=== PATIENT | male | born 1965 | race Caucasian/White ===

== ENCOUNTER → 2016-04-05 | Outpatient (REF) | payer OTHER ==
[2016-04-05 11:33] LABS: MEAN CORPUSCULAR HEMOGLOBIN 32.2 pg (27.0-33.0); MEAN CORPUSCULAR HGB CONC 35.5 g/dl (32.0-36.5); MEAN CORPUSCULAR VOLUME 90.6 fl (80.0-96.0); RED CELL DISTRIBUTION WIDTH 11.8 % (11.5-14.5); WHITE BLOOD COUNT 7.7 K/mm3 (4.0-10.0)
[2016-04-05 11:45] LABS: ALBUMIN/GLOBULIN RATIO 1.21 (1.00-1.93); ALKALINE PHOSPHATASE 163 U/L (45-117); ALT/SGPT 45 U/L (12-78); ANION GAP 10 MEQ/L (8-16); AST/SGOT 17 U/L (15-37); BILIRUBIN,TOTAL 0.4 MG/DL (0.2-1.0); BLOOD UREA NITROGEN 16 MG/DL (7-18); CALCIUM LEVEL 9.5 MG/DL (8.5-10.1); CARBON DIOXIDE LEVEL 27 MEQ/L (21-32); CHLORIDE LEVEL 106 MEQ/L (98-107); CHOLESTEROL LEVEL 191 MG/DL (<200); CREATININE FOR GFR 1.01 MG/DL (0.70-1.30); GLOMERULAR FILTRATION RATE > 60.0 (>56); GLUCOSE, FASTING 124 MG/DL (70-105); POTASSIUM SERUM 4.3 MEQ/L (3.5-5.1); SODIUM LEVEL 143 MEQ/L (136-145); TOTAL PROTEIN 7.3 GM/DL (6.4-8.2); TRIGLYCERIDES LEVEL 189 MG/DL (<150)
== END ==
LOC: M SFHCLERA 08:16
PROVIDERS: ATTEND Family Medicine
DX: Z00.00 Encounter for general adult medical examination without abnormal findings (principal)

== ENCOUNTER → 2016-05-08 | Outpatient (CLI) | payer OTHER ==
[~2016-05-08] VITALS: Ht 180.3 cm; Wt 99.8 kg
[~2016-05-08] MED LIST: ASPI1TAB PO; ATOR1TAB19 PO; LIDOCAINE 2% INJ 100 MG/5 ML SDV (FOR ANES.) As Ordered ONE; LOSA25TA8 PO; NEXI40CA PO; NS 1,000 ML IV SCH; PROPOFOL 500 MG/50 ML VIAL As Ordered ONE
--- NOTE | 2016-05-08 10:15 | ROOR ---
Patient Name: Arya Thompson Procedure Date: 05/08/2016 10:00 AM Date of : 1965 Age: 50 Room: [facility] Gender: Male Note Status: Finalized Procedure: Colonoscopy to Cecum Indications: Screening for colorectal malignant neoplasm Providers: Nikhil Muniz MD Referring MD: VERO HERRMANN MD Requesting Provider: Medicines: Monitored Anesthesia Care Complications: No immediate complications. Procedure: Pre-Anesthesia Assessment: - The heart rate, respiratory rate, oxygen saturations, blood pressure, adequacy of pulmonary ventilation, and response to care were monitored throughout the procedure. The Colonoscope was introduced through the anus and advanced to the cecum, identified by appendiceal orifice and ileocecal valve. The colonoscopy was performed without difficulty. The patient tolerated the procedure well. The quality of the bowel preparation was excellent. Findings: The perianal and digital rectal examinations were normal. Non-bleeding internal hemorrhoids were found during retroflexion. The hemorrhoids were small and Grade I (internal hemorrhoids that do not prolapse). No other significant abnormalities were identified in a careful examination of the remainder of the colon. The exam was otherwise without abnormality on direct and retroflexion views. Impression: - Non-bleeding internal hemorrhoids. - The examination was otherwise normal on direct and retroflexion views. - No specimens collected. - The exam was otherwise normal to the cecum. Recommendation: - Patient has a contact number available for emergencies. The signs and symptoms of potential delayed complications were discussed with the patient. Return to normal activities tomorrow. Written discharge instructions were provided to the patient. - High fiber diet. - Discharge patient to home. - Continue present medications. - Repeat colonoscopy in 10 years for screening purposes. - Return to referring physician. - The findings and recommendations were discussed with the patient's family. Nikhil Muniz MD Nikhil Muniz MD 05/08/2016 10:15:01 AM This report has been signed electronically. Number of Addenda: 0 Note Initiated On: 05/08/2016 10:00 AM Estimated Blood Loss: Estimated blood loss: none.
[2016-05-08 10:30] VITALS: BP 146/93
== END ==
LOC: M OPP 09:16
PROVIDERS: ATTEND Internal Medicine Gastroenterology
DX: Z12.11 Encounter for screening for malignant neoplasm of colon (principal); K64.0 First degree hemorrhoids; I10 Essential (primary) hypertension; M19.90 Unspecified osteoarthritis, unspecified site; G47.30 Sleep apnea, unspecified; K21.9 Gastro-esophageal reflux disease without esophagitis; E78.00 Pure hypercholesterolemia, unspecified; R06.83 Snoring; Z87.891 Personal history of nicotine dependence; Z79.82 Long term (current) use of aspirin; Z79.899 Other long term (current) drug therapy
CPT/HCPCS: 99156; G0121

== ENCOUNTER → 2016-10-05 | Outpatient (REF) | payer OTHER ==
[~2016-10-05] MED LIST changes: -LIDOCAINE 2% INJ 100 MG/5 ML SDV (FOR ANES.) As Ordered ONE; -NS 1,000 ML IV SCH; -PROPOFOL 500 MG/50 ML VIAL As Ordered ONE
[2016-10-05 12:53] LABS: ALBUMIN 3.8 GM/DL (3.2-5.2); ALBUMIN/GLOBULIN RATIO 1.19 (1.00-1.93); ALKALINE PHOSPHATASE 139 U/L (45-117); ALT/SGPT 36 U/L (12-78); ANION GAP 9 MEQ/L (8-16); AST/SGOT 15 U/L (15-37); BILIRUBIN,TOTAL 0.5 MG/DL (0.2-1.0); BLOOD UREA NITROGEN 13 MG/DL (7-18); CALCIUM LEVEL 9.2 MG/DL (8.5-10.1); CARBON DIOXIDE LEVEL 25 MEQ/L (21-32); CHLORIDE LEVEL 105 MEQ/L (98-107); CREATININE FOR GFR 0.93 MG/DL (0.70-1.30); GLOMERULAR FILTRATION RATE > 60.0 (>56); GLUCOSE, FASTING 107 MG/DL (70-105); POTASSIUM SERUM 4.3 MEQ/L (3.5-5.1); SODIUM LEVEL 139 MEQ/L (136-145)
[2016-10-07 00:08] LABS: Lyme Disease IgG/IgM Antibodie <0.91 ISR (0.00-0.90); Lyme Disease IgM Ab Quantitati <0.80 index (0.00-0.79)
== END ==
LOC: M SFHCLERA 09:17
PROVIDERS: ATTEND Family Medicine
DX: M25.541 Pain in joints of right hand (principal); M25.542 Pain in joints of left hand

== ENCOUNTER → 2016-10-05 | Outpatient (CLI) | payer OTHER ==
--- NOTE | 2016-10-06 02:04 | REP ---
Clinical: Pain. Technique: Neutral and frog lateral views of the left hip. Comparison: 04/08/2014. Findings: Mild arthritic degenerative changes are again appreciated and relatively stable. Findings include increased sclerosis to the acetabular roof with subtle marginal spurring and joint space narrowing. Proximal left femur appears intact and relatively normal. No acute fracture dislocation. No periarticular calcifications. Impression: Mild arthritic degenerative changes similar to prior examination Signed by Chente Alcocer MD 10/06/2016 01:55 A
== END ==
LOC: M LRY 09:20
PROVIDERS: ATTEND Family Medicine
DX: M25.552 Pain in left hip (principal); M16.12 Unilateral primary osteoarthritis, left hip

== ENCOUNTER → 2017-01-23 | Outpatient (CLI) | payer OTHER ==
[~2017-01-23] MED LIST changes: +LIDOCAINE 1% MDV 20ML VIAL As Ordered ONE; +TRIAMCINOLONE ACETONIDE SUSP 40 MG/ML VIAL (J3301) As Ordered ONE
--- NOTE | 2017-01-23 13:36 | REP ---
ULTRASOUND LEFT HIP: Real-time sonographic evaluation of the left hip performed prior to ultrasound guided hip aspiration. There is an area of fluid at the left hip joint measuring 4.1 x 0.8 x 1.3 cm. Ultrasound guided aspiration is subsequently performed. Signed by Skip Berg MD 01/24/2017 11:27 A
--- NOTE | 2017-01-23 17:10 | REP ---
ULTRASOUND GUIDED LEFT HIP ASPIRATION AND INJECTION: The procedure was performed under the direct supervision of Dr. Berg. The patient has a history of a 4.1 x 0.8 x 1.3 cm area of fluid at the left hip joint seen on a previous ultrasound performed earlier today. The risks and benefits of the procedure were explained to the patient and informed consent was obtained. The left hip fluid collection was localized using ultrasound guidance. The skin was prepped and draped in a sterile fashion. 1% Lidocaine was used as a local anesthetic. Using ultrasound guidance an 18-gauge needle was inserted and then advanced into the fluid collection. 3 mL of clear yellow fluid was withdrawn and sent to the lab. 6 mL of a solution containing 5 mL of 1% Lidocaine and 1 mL of Kenalog 40 mg was injected. The needle was then removed. The patient tolerated the procedure well and there were no immediate complications. After the appropriate amount of monitored convalescence the patient was discharged from the department. Reviewed by ELOINA Fay 01/24/2017 04:28 PEdited and Signed by Skip Berg MD 01/25/2017 04:22 P
== END ==
LOC: M RADPRO 10:40
PROVIDERS: ATTEND Orthopaedic Surgery
DX: M16.12 Unilateral primary osteoarthritis, left hip (principal); Z88.8 Allergy status to other drugs, medicaments and biological substances; Z79.82 Long term (current) use of aspirin; Z79.899 Other long term (current) drug therapy
CPT/HCPCS: 20610; 76882; 88108; 88313; J3301

== ENCOUNTER → 2017-05-28 | Outpatient (CLI) | payer OTHER ==
[2017-05-28 21:04] LABS: BASO # 0.1 10^3/uL (0.0-0.2); BASO % 0.7 % (0.0-1.0); EOS # 0.2 10^3/uL (0.0-0.50); EOS % 2.7 % (0.0-3.0); HEMATOCRIT 45.2 % (42.0-52.0); HEMOGLOBIN 15.2 g/dl (14.0-18.0); IMMATURE GRANULOCYTE % 0.2 % (0-3.0); LYMPH # 2.3 10^3/uL (1.5-4.5); LYMPH % 25.9 % (24.0-44.0); MEAN CORPUSCULAR HEMOGLOBIN 31.5 pg (27.0-33.0); MEAN CORPUSCULAR HGB CONC 33.6 g/dl (32.0-36.5); MEAN CORPUSCULAR VOLUME 93.8 fl (80.0-96.0); MONO # 1.1 10^3/uL (0.0-0.8); MONO % 12.8 % (0.0-5.0); NEUTROPHILS # 5.1 10^3/uL (1.8-7.7); NEUTROPHILS % 57.7 % (36.0-66.0); PLATELET COUNT, AUTOMATED 205 10^3/uL (150-450); RED BLOOD COUNT 4.82 10^6/uL (4.30-6.10); RED CELL DISTRIBUTION WIDTH 12.2 % (11.5-14.5); WHITE BLOOD COUNT 8.9 10^3/uL (4.0-10.0)
[2017-05-28 21:26] LABS: ALBUMIN/GLOBULIN RATIO 1.14 (1.00-1.93); ALKALINE PHOSPHATASE 127 U/L (45-117); ALT/SGPT 59 U/L (12-78); ANION GAP 7 MEQ/L (8-16); AST/SGOT 22 U/L (7-37); BILIRUBIN,TOTAL 0.4 MG/DL (0.2-1.0); BLOOD UREA NITROGEN 13 MG/DL (7-18); C REACTIVE PROTEIN QUANTITATIV 0.63 MG/DL (0.00-0.30); CALCIUM LEVEL 8.6 MG/DL (8.5-10.1); CARBON DIOXIDE LEVEL 28 MEQ/L (21-32); CHLORIDE LEVEL 105 MEQ/L (98-107); CREATININE FOR GFR 0.89 MG/DL (0.70-1.30); GLOMERULAR FILTRATION RATE > 60.0 (>56); GLUCOSE, FASTING 81 MG/DL (70-100); POTASSIUM SERUM 4.3 MEQ/L (3.5-5.1); SODIUM LEVEL 140 MEQ/L (136-145); TOTAL PROTEIN 7.5 GM/DL (6.4-8.2)
== END ==
LOC: M LRY 16:19
DX: M06.00 Rheumatoid arthritis without rheumatoid factor, unspecified site (principal)

== ENCOUNTER → 2017-10-17 | Outpatient (REF) | payer OTHER | LOC: M SFHCLERA 14:43 | DX: J02.9 Acute pharyngitis, unspecified (principal) ==

== ENCOUNTER → 2017-12-07 | Outpatient (REF) | payer OTHER ==
[2017-12-07 12:26] LABS: HEMATOCRIT 47.8 % (42.0-52.0); HEMOGLOBIN 16.2 g/dl (13.5-17.5); MEAN CORPUSCULAR HEMOGLOBIN 33.1 pg (27.0-33.0); MEAN CORPUSCULAR HGB CONC 33.9 g/dl (32.0-36.5); MEAN CORPUSCULAR VOLUME 97.6 fl (80.0-96.0); PLATELET COUNT, AUTOMATED 201 10^3/uL (150-450); RED CELL DISTRIBUTION WIDTH 12.9 % (11.5-14.5); WHITE BLOOD COUNT 6.5 10^3/uL (4.0-10.0)
[2017-12-07 12:49] LABS: ALBUMIN 4.1 GM/DL (3.2-5.2); ALBUMIN/GLOBULIN RATIO 1.21 (1.00-1.93); ALKALINE PHOSPHATASE 116 U/L (45-117); ALT/SGPT 42 U/L (12-78); ANION GAP 7 MEQ/L (8-16); AST/SGOT 17 U/L (7-37); BILIRUBIN,TOTAL 0.6 MG/DL (0.2-1.0); BLOOD UREA NITROGEN 13 MG/DL (7-18); CALCIUM LEVEL 9.9 MG/DL (8.5-10.1); CARBON DIOXIDE LEVEL 26 MEQ/L (21-32); CHLORIDE LEVEL 108 MEQ/L (98-107); CHOLESTEROL LEVEL 250 MG/DL (<200); CHOLESTEROL RISK RATIO 5.952 (<5); CREATININE FOR GFR 0.87 MG/DL (0.70-1.30); FOLATE > 24.0 NG/ML (>5.4); FREE T4 0.96 NG/DL (0.76-1.46); GLOMERULAR FILTRATION RATE > 60.0 (>56); GLUCOSE, FASTING 100 MG/DL (70-100); HDL CHOLESTEROL 42 MG/DL (>40); LDL CHOLESTEROL 169 MG/DL (<100); NON-HDL-C 208 MG/DL; POTASSIUM SERUM 4.5 MEQ/L (3.5-5.1); SODIUM LEVEL 141 MEQ/L (136-145); TOTAL PROTEIN 7.5 GM/DL (6.4-8.2); TRIGLYCERIDES LEVEL 196 MG/DL (<150)
[2017-12-07 13:41] LABS: MALB URINE SIEMENS 14.8 MG/L
[2017-12-07 13:42] LABS: MAU/CREAT RATIO 8.6 MCG/MG (0.0-30.0)
== END ==
LOC: M SFHCPLAZ 08:53
DX: E78.2 Mixed hyperlipidemia (principal); M06.00 Rheumatoid arthritis without rheumatoid factor, unspecified site; I10 Essential (primary) hypertension

== ENCOUNTER → 2018-04-11 | Outpatient (REF) | payer OTHER ==
[~2018-04-11] MED LIST changes: -LIDOCAINE 1% MDV 20ML VIAL As Ordered ONE; +LOSA25TA14 PO; -LOSA25TA8 PO; -TRIAMCINOLONE ACETONIDE SUSP 40 MG/ML VIAL (J3301) As Ordered ONE
[2018-04-11 17:13] LABS: BASO # 0.1 10^3/uL (0.0-0.2); BASO % 0.6 % (0.0-1.0); EOS # 0.1 10^3/uL (0.0-0.50); HEMATOCRIT 50.9 % (42.0-52.0); HEMOGLOBIN 17.3 g/dl (13.5-17.5); LYMPH # 1.8 10^3/uL (1.5-4.5); LYMPH % 17.2 % (24.0-44.0); MEAN CORPUSCULAR VOLUME 97.1 fl (80.0-96.0); MONO # 1.4 10^3/uL (0.0-0.8); MONO % 12.8 % (0.0-5.0); NEUTROPHILS # 7.3 10^3/uL (1.8-7.7); NEUTROPHILS % 67.9 % (36.0-66.0); PLATELET COUNT, AUTOMATED 222 10^3/uL (150-450); RED BLOOD COUNT 5.24 10^6/uL (4.30-6.10); WHITE BLOOD COUNT 10.7 10^3/uL (4.0-10.0)
[2018-04-11 17:25] LABS: ALBUMIN 4.2 GM/DL (3.2-5.2); ALT/SGPT 90 U/L (12-78); BILIRUBIN,TOTAL 0.8 MG/DL (0.2-1.0); BLOOD UREA NITROGEN 18 MG/DL (7-18); C REACTIVE PROTEIN QUANTITATIV 1.63 MG/DL (0.00-0.30); CALCIUM LEVEL 8.6 MG/DL (8.5-10.1); CARBON DIOXIDE LEVEL 26 MEQ/L (21-32); CHLORIDE LEVEL 103 MEQ/L (98-107); CREATININE FOR GFR 1.08 MG/DL (0.70-1.30); GLOMERULAR FILTRATION RATE > 60.0 (>56); GLUCOSE, FASTING 100 MG/DL (70-100); POTASSIUM SERUM 3.6 MEQ/L (3.5-5.1); RHEUMATOID FACTOR QUANT < 10.0 IU/ML (<15.0); SODIUM LEVEL 137 MEQ/L (136-145); TOTAL PROTEIN 7.8 GM/DL (6.4-8.2); URIC ACID 8.8 MG/DL (3.5-7.2)
[2018-04-11 18:05] LABS: ERYTHROCYTE SEDIMENTATION RATE 2 mm/hr (0-20)
[2018-04-17 14:36] LABS: ANA (HEP2) Negative (.); CYCLIC CITRULLINATED PEPTIDE 6 units (0-19); HLA-B27 Negative (.)
== END ==
LOC: M SFHCPLAZ 10:24
PROVIDERS: ATTEND Internal Medicine Rheumatology
DX: M19.90 Unspecified osteoarthritis, unspecified site (principal); M25.559 Pain in unspecified hip; M79.673 Pain in unspecified foot; M65.339 Trigger finger, unspecified middle finger

== ENCOUNTER → 2018-04-11 | Outpatient (CLI) | payer OTHER ==
--- NOTE | 2018-04-11 15:51 | REP ---
Sacroiliac joint series four views: The studies performed for R for a right os. Mineralization is normal. There is no cortical eburnation. There is no osteophytic growth. The sacral foramen are unremarkable. Phleboliths are incidentally noted in the pelvis bilaterally. There is osteoarthritis of the hips bilaterally. Impression: Negative bilateral sacroiliac joint series. Bilateral hip osteoarthritis. Electronically Signed by Skip De Leon MD 04/11/2018 03:42 P
--- NOTE | 2018-04-11 15:54 | REP ---
Bilateral hand series: Nine views: History: Arthritis. Findings: Four views of the right hand show overall normal mineralization. Joint spaces are preserved. No erosive changes seen. Soft tissues are unremarkable. Four views of the left hand demonstrate overall normal mineralization. Joint spaces are preserved. No erosive change is visible. Soft tissues are unremarkable. Impression: Negative radiographs of the hands bilaterally. Electronically Signed by Jackson Tatum MD 04/11/2018 03:56 P
--- NOTE | 2018-04-11 15:58 | REP ---
Bilateral foot series: Eight views. History: Pain. Arthritis. Findings: Overall mineralization pattern is normal. Joint spaces are preserved. There is mild hallux valgus deformity visible on the right. There is some early spurring at the first MTP joint on the right. Bones, joints and soft tissues are otherwise unremarkable. Impression: Hallux valgus and early MTP joint spurring right great toe. Otherwise negative. Electronically Signed by Jackson Tatum MD 04/12/2018 08:50 A
== END ==
LOC: M LRY 14:00
PROVIDERS: ATTEND Internal Medicine Rheumatology
DX: M16.0 Bilateral primary osteoarthritis of hip (principal); M20.11 Hallux valgus (acquired), right foot; M25.774 Osteophyte, right foot; M79.673 Pain in unspecified foot; M25.559 Pain in unspecified hip; M65.339 Trigger finger, unspecified middle finger
CPT/HCPCS: 72202; 73130; 73630; 80053; 81374; 84550; 85025; 85652; 86038; 86140; 86200; 86431; G0463

== ENCOUNTER → 2018-04-24 | Outpatient (REF) | payer OTHER ==
[2018-04-24 10:14] LABS: ALBUMIN 4.2 GM/DL (3.2-5.2); ALT/SGPT 73 U/L (12-78); BILIRUBIN,DIRECT 0.1 MG/DL (0.0-0.2); BILIRUBIN,TOTAL 0.4 MG/DL (0.2-1.0); C REACTIVE PROTEIN QUANTITATIV < 0.30 MG/DL (0.00-0.30); TOTAL PROTEIN 7.4 GM/DL (6.4-8.2)
== END ==
LOC: M SFHCPLAZ 08:35
PROVIDERS: ATTEND Internal Medicine Rheumatology
DX: M19.90 Unspecified osteoarthritis, unspecified site (principal)
CPT/HCPCS: 36415; 80076; 86140; G0463

== ENCOUNTER → 2018-05-27 | Outpatient (REF) | payer OTHER ==
[2018-05-27 11:45] LABS: BASO # 0.1 10^3/uL (0.0-0.2); BASO % 0.9 % (0.0-1.0); EOS # 0.2 10^3/uL (0.0-0.50); HEMATOCRIT 45.5 % (42.0-52.0); HEMOGLOBIN 15.3 g/dl (13.5-17.5); LYMPH # 2.5 10^3/uL (1.5-4.5); LYMPH % 38.8 % (24.0-44.0); MEAN CORPUSCULAR HEMOGLOBIN 32.6 pg (27.0-33.0); MEAN CORPUSCULAR HGB CONC 33.6 g/dl (32.0-36.5); MONO # 0.6 10^3/uL (0.0-0.8); MONO % 9.9 % (0.0-5.0); NEUTROPHILS % 47.2 % (36.0-66.0); PLATELET COUNT, AUTOMATED 173 10^3/uL (150-450); RED BLOOD COUNT 4.69 10^6/uL (4.30-6.10); WHITE BLOOD COUNT 6.4 10^3/uL (4.0-10.0)
[2018-05-27 12:04] LABS: ALBUMIN 3.8 GM/DL (3.2-5.2); ALT/SGPT 83 U/L (12-78); BILIRUBIN,TOTAL 0.4 MG/DL (0.2-1.0); BLOOD UREA NITROGEN 14 MG/DL (7-18); CALCIUM LEVEL 8.7 MG/DL (8.5-10.1); CARBON DIOXIDE LEVEL 24 MEQ/L (21-32); CHLORIDE LEVEL 109 MEQ/L (98-107); CREATININE FOR GFR 0.93 MG/DL (0.70-1.30); GLOMERULAR FILTRATION RATE > 60.0 (>56); GLUCOSE, FASTING 119 MG/DL (70-100); POTASSIUM SERUM 3.7 MEQ/L (3.5-5.1); SODIUM LEVEL 141 MEQ/L (136-145); URIC ACID 5.8 MG/DL (3.5-7.2)
[2018-05-27 12:40] LABS: ERYTHROCYTE SEDIMENTATION RATE 6 mm/hr (0-20)
== END ==
LOC: M SFHCPLAZ 08:24
PROVIDERS: ATTEND Internal Medicine Rheumatology
DX: M19.90 Unspecified osteoarthritis, unspecified site (principal)

== ENCOUNTER → 2018-06-14 | Outpatient (REF) | payer OTHER ==
[~2018-06-14] MED LIST changes: -ASPI1TAB PO; +ASPI81TA26 PO
[2018-06-14 20:27] LABS: BASO # 0.1 10^3/uL (0.0-0.2); BASO % 0.8 % (0.0-1.0); EOS # 0.1 10^3/uL (0.0-0.50); EOS % 1.1 % (0.0-3.0); HEMATOCRIT 47.4 % (42.0-52.0); HEMOGLOBIN 15.8 g/dl (13.5-17.5); LYMPH # 2.4 10^3/uL (1.5-4.5); LYMPH % 27.2 % (24.0-44.0); MEAN CORPUSCULAR HEMOGLOBIN 32.2 pg (27.0-33.0); MEAN CORPUSCULAR HGB CONC 33.3 g/dl (32.0-36.5); MEAN CORPUSCULAR VOLUME 96.5 fl (80.0-96.0); MONO # 0.7 10^3/uL (0.0-0.8); MONO % 8.1 % (0.0-5.0); NEUTROPHILS # 5.6 10^3/uL (1.8-7.7); NEUTROPHILS % 62.6 % (36.0-66.0); PLATELET COUNT, AUTOMATED 195 10^3/uL (150-450); RED BLOOD COUNT 4.91 10^6/uL (4.30-6.10); WHITE BLOOD COUNT 8.9 10^3/uL (4.0-10.0)
[2018-06-14 20:33] LABS: ALBUMIN 4.2 GM/DL (3.2-5.2); ALT/SGPT 122 U/L (12-78); BILIRUBIN,TOTAL 0.8 MG/DL (0.2-1.0); BLOOD UREA NITROGEN 13 MG/DL (7-18); C REACTIVE PROTEIN QUANTITATIV < 0.30 MG/DL (0.00-0.30); CALCIUM LEVEL 8.9 MG/DL (8.5-10.1); CARBON DIOXIDE LEVEL 25 MEQ/L (21-32); CHLORIDE LEVEL 106 MEQ/L (98-107); CREATININE FOR GFR 0.89 MG/DL (0.70-1.30); GLOMERULAR FILTRATION RATE > 60.0 (>56); GLUCOSE, FASTING 94 MG/DL (70-100); POTASSIUM SERUM 3.9 MEQ/L (3.5-5.1); SODIUM LEVEL 139 MEQ/L (136-145); TOTAL PROTEIN 7.1 GM/DL (6.4-8.2)
[2018-06-14 21:29] LABS: ERYTHROCYTE SEDIMENTATION RATE 4 mm/hr (0-20)
[2018-06-15 09:24] LABS: BILIRUBIN,DIRECT 0.2 MG/DL (0.0-0.2)
== END ==
LOC: M SFHCPLAZ 14:50
PROVIDERS: ATTEND Internal Medicine Rheumatology
DX: M19.90 Unspecified osteoarthritis, unspecified site (principal)

== ENCOUNTER → 2018-06-18 | Outpatient (REF) | payer OTHER ==
[2018-06-19 10:02] LABS: HEPATITIS B SURFACE ANTIBODY NEGATIVE (POSITIVE); HEPATITIS B SURFACE ANTIGEN NEGATIVE (NEGATIVE)
[2018-06-20 00:07] LABS: ANTI-MITOCHONDRIAL ANTIBODY <20.0 Units (0.0-20.0); ANTI-SMOOTH MUSCLE ANTIBODY 8 Units (0-19); HEPATITIS B CORE ANTIBODY IGG Negative (Negative)
== END ==
LOC: M SFHCPLAZ 08:47
PROVIDERS: ATTEND Internal Medicine Rheumatology
DX: R94.5 Abnormal results of liver function studies (principal); Z79.899 Other long term (current) drug therapy

== ENCOUNTER → 2018-08-16 | Outpatient (REF) | payer OTHER ==
[2018-08-16 12:13] LABS: ALBUMIN 3.8 GM/DL (3.2-5.2); ALT/SGPT 66 U/L (12-78); BILIRUBIN,TOTAL 0.6 MG/DL (0.2-1.0); BLOOD UREA NITROGEN 20 MG/DL (7-18); CALCIUM LEVEL 8.7 MG/DL (8.5-10.1); CARBON DIOXIDE LEVEL 24 MEQ/L (21-32); CHLORIDE LEVEL 109 MEQ/L (98-107); CREATININE FOR GFR 0.94 MG/DL (0.70-1.30); GLOMERULAR FILTRATION RATE > 60.0 (>56); GLUCOSE, FASTING 120 MG/DL (70-100); POTASSIUM SERUM 4.2 MEQ/L (3.5-5.1); SODIUM LEVEL 141 MEQ/L (136-145); TOTAL PROTEIN 7.2 GM/DL (6.4-8.2)
== END ==
LOC: M SFHCPLAZ 09:08
PROVIDERS: ATTEND Internal Medicine Rheumatology
DX: R94.5 Abnormal results of liver function studies (principal)

== ENCOUNTER → 2018-09-17 | Outpatient (CLI) | payer OTHER ==
[~2018-09-17] MED LIST changes: +ALEV220T22 PO; +NATU1TAB5 PO; +OMEP20CA4 PO; +embrel
[2018-09-17 07:23] LABS: HEMATOCRIT 46.5 % (42.0-52.0); HEMOGLOBIN 15.8 g/dl (13.5-17.5); MEAN CORPUSCULAR HEMOGLOBIN 32.8 pg (27.0-33.0); MEAN CORPUSCULAR VOLUME 96.7 fl (80.0-96.0); PLATELET COUNT, AUTOMATED 183 10^3/uL (150-450); RED BLOOD COUNT 4.81 10^6/uL (4.30-6.10); WHITE BLOOD COUNT 7.3 10^3/uL (4.0-10.0)
[2018-09-17 07:38] LABS: INR 0.96; PROTHROMBIN TIME 12.5 SECONDS (11.8-14.0)
--- NOTE | 2018-09-17 07:43 | ECGEPIP ---
[facility] Test Date: 2018-09-17 Pat Name: CHRISTY COLUNGA Department: Room: - Gender: Male Brick Layer: ARI : 1965 Requested By: Jhonathan Wilkinson Order Number: [id number] Reading MD: Chiqui Alexis Measurements Intervals [place] Rate: 68 P: 60 VA: 156 QRS: QRSD: 91 T: QT: 375 QTc: 401 Interpretive Statements SINUS RHYTHM MINIMAL VOLTAGE CRITERIA FOR LVH, CONSIDER NORMAL VARIANT Left axis deviation EARLY REPOLAR SUSPECTED NO PRIOR Electronically Signed on 09-17-2018 7:43:44 EDT by Chiqui Alexis
[2018-09-17 07:48] LABS: ALBUMIN 3.9 GM/DL (3.2-5.2); ALT/SGPT 40 U/L (12-78); BILIRUBIN,TOTAL 0.4 MG/DL (0.2-1.0); BLOOD UREA NITROGEN 22 MG/DL (7-18); CALCIUM LEVEL 8.9 MG/DL (8.5-10.1); CARBON DIOXIDE LEVEL 26 MEQ/L (21-32); CHLORIDE LEVEL 111 MEQ/L (98-107); GLOMERULAR FILTRATION RATE > 60.0 (>56); GLUCOSE, FASTING 116 MG/DL (70-100); POTASSIUM SERUM 4.2 MEQ/L (3.5-5.1); SODIUM LEVEL 137 MEQ/L (136-145); TOTAL PROTEIN 7.1 GM/DL (6.4-8.2)
[2018-09-17 08:05] LABS: ERYTHROCYTE SEDIMENTATION RATE 5 mm/hr (0-20)
--- NOTE | 2018-09-17 09:38 | REP ---
Clinical: Left hip arthritis. . Comparison: 12/04/2008 . Technique: PA and lateral. Findings: The mediastinum and cardiac silhouette are normal. The lung cisneros are clear and without acute consolidation, effusion, or pneumothorax. The skeletal structures are intact and normal. Impression: 1. No acute cardiopulmonary process. Electronically Signed by Chente Alcocer MD 09/17/2018 09:31 A
== END ==
LOC: M LAB 06:45
PROVIDERS: ATTEND Orthopaedic Surgery
DX: Z01.818 Encounter for other preprocedural examination (principal); M16.12 Unilateral primary osteoarthritis, left hip

== ENCOUNTER 2018-10-09 07:02 | Inpatient (IN) | payer OTHER ==
--- NOTE | 2018-10-03 16:25 | HPE ---
DATE OF VISIT: 10/03/2018 DATE OF ANTICIPATED ADMISSION: 10/09/2018 ATTENDING PHYSICIAN: Dr. Jhonathan Wilkinson. CHIEF COMPLAINT: Left hip pain and stiffness. HISTORY: Patient is a 52-year-old male with progressively worsening left hip pain and stiffness. Symptoms started secondary to his chronic knee, ankle and low back pain. He has failed to improve with conservative measures. He continues to have symptoms with weightbearing activities and activities of daily living. He has consented for an elective left total hip arthroplasty with Dr. Wilkinson for his continued symptoms. Medical optimization pending with Dr. Erwin. CURRENT MEDICATIONS: - aspirin 81 mg daily - colchicine 0.6 mg as needed - omeprazole 20 mg daily - Enbrel injections - allopurinol 100 mg daily - Nexium 20 mg daily - Lipitor 420 mg daily - losartan 50 mg daily - sulfasalazine 500 mg daily ALLERGIES: There are no known drug allergies. CHRONIC MEDICAL CONDITIONS: 1. Gout. 2. Gastroesophageal reflux disease. 3. Rheumatoid arthritis. 4. Hypertension. 5. Hyperlipidemia. PAST SURGICAL HISTORY: 1. Two left knee arthroscopies. 2. One right knee arthroscopy 3. Cholecystectomy. SOCIAL HISTORY: Patient has never used tobacco products and occasionally consumes alcohol. REVIEW OF SYSTEMS: Patient denies fevers, chills, nausea, vomiting or diarrhea. Denies chest pain, shortness of breath, lightheadedness, dizziness or headaches. Denies any abdominal pain. Denies recent upper respiratory or urinary tract infection symptoms. He continues to get left hip pain with weightbearing activities and activities of daily living. PHYSICAL EXAMINATION: GENERAL: Well-nourished, well-developed male in no apparent distress. He is alert, oriented and cooperative. Mood and affect are appropriate. VITAL SIGNS: Blood pressure 130/79, heart rate 76, respirations 16, height 5 feet 11 inches, weight 230.6 pounds, temperature 97.7. NECK: Supple without lymphadenopathy. HEART: Regular rate and rhythm. LUNGS: Clear to auscultation bilaterally. Breathing is regular and nonlabored. ABDOMEN: Bowel sounds present. Abdomen is soft and nontender to palpation. MUSCULOSKELETAL: Left hip exhibits no gross abnormalities. His skin is intact. There is tenderness to palpation along the lateral hip and groin. He has significantly limited motion in internal and external rotation at the hip with quite a bit of pain on flexion of the hip. Strength is intact, however. Calf is soft, nontender to palpation with no palpable cords noted. He is neurovascularly intact distally. LABORATORY DATA: Chest x-ray: No acute cardiopulmonary process. Left hip x-ray: Notable for end-stage degenerative changes. EKG: Sinus rhythm with minimal voltage criteria for left ventricular hypertrophy (LVH), consider normal variant left axis deviation with early repolarization suspected. Prothrombin time 12.5, INR 0.96. Comprehensive metabolic profile: Fasting glucose elevated at 116, BUN elevated at 22, creatinine 1, GFR greater than 60, sodium 137, potassium 4.2, chloride elevated at 111, carbon dioxide 26, anion gap decreased at zero, calcium 8.9. AST 14, ALT 40, alkaline phosphatase elevated at 132, total bilirubin 0.4, total protein 7.1, albumin 3.9, albumin-globulin ratio 1.22. Complete blood count: Erythrocyte sedimentation rate 5, WBC is 7.3, RBC is 4.81, hemoglobin 15.8, hematocrit 46.5, platelets 183. IMPRESSION: Left hip degenerative arthritis with x-rays notable for end-stage degenerative changes. PLAN: Patient has consented for an elective left total hip arthroplasty with Dr. Wilkinson for his continued symptoms. Medical optimization pending with Dr. Erwin. [facility]
[2018-10-09] VITALS (7 sets, daily range): BP systolic 114–149; BP diastolic 84–101
[~2018-10-09] VITALS: Ht 180.3 cm; Wt 60.7 kg
[~2018-10-09 07:02] MED LIST changes: +BUPIVACAINE LIPOSOME/PF 1.3% 20ML VIAL (13.3MG/ML)(EXPAREL)(C9290 PER1MG) As Ordered ONE; +EPINEPHrine INJ 1 MG/ML 1ML AMP As Ordered ONE; +LIDOCAINE 1% MDV 20ML VIAL SQ PRN; +LR 1,000 ML IV ONE; +TRANEXAMIC ACID 100 MG/ML 10ML VIAL As Ordered ONE; +ceFAZolin 1GM INJ (J0690 PER 500MG) As Ordered ONE
[2018-10-09] MEDS ORDERED: PROPOFOL 500 MG/50 ML VIAL As Ordered ONE (08:04)
[2018-10-09] MEDS ORDERED: dexameTHASONE 4 MG/ML 1ML VIAL (J1100) As Ordered ONE ×2 (08:04→08:05)
[2018-10-09] MEDS ORDERED: fentaNYL 100 MCG/2 ML INJECTION (J3010) As Ordered ONE (08:04)
[2018-10-09] MEDS ORDERED: MIDAZOLAM INJ 2 MG/2 ML VIAL (J2250) As Ordered ONE (08:04)
[2018-10-09] MEDS ORDERED: ONDANSETRON 4MG/2ML VIAL (J2405) As Ordered ONE (08:05)
[2018-10-09] MEDS ORDERED: LIDOCAINE 2% INJ 100 MG/5 ML SDV (FOR ANES.) As Ordered ONE (08:11)
--- NOTE | 2018-10-09 08:36 | IPN ---
DATE: 10/09/2018 The patient seen and examined. He wishes to go ahead with a left total hip arthroplasty. He understands the nature of this and the risks of bleeding, infection, damage to nerves and vessels, persistent pain, wear, loosening, dislocation, leg length inequality, blood clots, medical problems, , among others.
[2018-10-09] MEDS ORDERED: HYDROMORPHONE HCL 0.5 MG/ 0.5 ML SYRINGE (J1170 PER 1) IV PRN (10:45)
[2018-10-09] MEDS ORDERED: fentaNYL 100 MCG/2 ML INJECTION (J3010) IV PRN (10:45)
[2018-10-09] MEDS ORDERED: PERCOCET 5MG/325MG TAB PO PRN ×2 (10:45→11:00)
[2018-10-09] MEDS ORDERED: ONDANSETRON 4MG/2ML VIAL (J2405) IV PRN (10:45)
[2018-10-09] MEDS ORDERED: LR 1,000 ML IV SCH ×2 (10:45)
[2018-10-09] MEDS ORDERED: ACETAMINOPHEN TAB 650MG DOSE (2X325MG) PO PRN (10:45)
[2018-10-09] MEDS ORDERED: MORPHINE 4 MG/ML 1ML VIAL/SYRINGE (J2270) IV PRN (10:45)
[2018-10-09] MEDS ORDERED: FLEET ENEMA PR PRN (10:45)
--- NOTE | 2018-10-09 11:14 | REP ---
Clinical: Status post arthroplasty. Technique: AP and cross-table lateral views. Findings: The patient is status post left hip replacement with normal positioning and appearance to the femoral and acetabular components. Overlying postsurgical changes appreciated. Impression: Satisfactory left hip replacement radiographs. Electronically Signed by Chente Alcocer MD 10/09/2018 11:05 A
--- NOTE | 2018-10-09 12:00 | RO ---
DATE OF PROCEDURE: 10/09/2018 PREOPERATIVE DIAGNOSIS: Left hip osteoarthritis. POSTOPERATIVE DIAGNOSIS: Left hip osteoarthritis. PROCEDURE PERFORMED: Left total hip arthroplasty using a [place] size 7 high offset, +1.5 ceramic 36 ball and a 56 [place] cup. SURGEON: Dr. Jhonathan Wilkinson OIL FIELD CASER: RAMIRO Lawrence ANESTHESIA: Spinal ESTIMATED BLOOD LOSS: 200 COMPLICATIONS: None. INDICATIONS: This is a 52-year-old gentleman who has had gradually worsening left hip pain to the point where he could not tolerate it anymore and had failed conservative management. He wished to have surgical treatment. He understood the nature and risks. DESCRIPTION OF PROCEDURE: The patient was taken to the operating room and placed in the right lateral decubitus position. All areas were padded appropriately. The [place] positioner was used. We prepped and draped the left hip in the usual fashion. A time out was performed. I created a longitudinal incision over the lateral aspect of the hip and sharply dissected down through subcutaneous tissue, controlled hemostasis with the cautery and incised the fascia miguelito which was relatively tight. He also had fairly poor fascia miguelito plane proximally. It tended to turn into muscle. I then divided the anterior 40% of the abductors. We gradually externally rotated the femur and exposed the femoral neck and divided the labrum. We then dislocated the hip with the corporate legal assistant's help and I put the leg in the bag. Then used a canal initiating reamer, the canal finding reamer, the lateralizing reamer, followed by sequential reaming up to a size 7, which had good purchase and good fit. This is what we templated. I then cut the neck at about three-quarters of a fingerbreadth from the lesser trochanter, removed the ball and then prepared the acetabulum. A significant amount of soft tissue was around the acetabulum. This was carefully removed with the cautery. Then I gradually began reaming with a 50 up to a 55, which had excellent bleeding bone and good concentric reaming. There was a large anterior osteophyte. I irrigated it out copiously and then impacted in a 56 cup in the appropriate amount of anteversion and horizontal tilt. I did dial in just a couple more degrees of anteversion because it is my feeling with his young age he may be more prone to doing flexion activities. I then dried it out and placed the 36 x 56 ceramic liner, which is what he had chosen preoperatively. This was impacted in place and made sure it was well seated. I then removed the large anterior osteophyte with an osteotome rongeur. Then prepared the canal at this point and used the oskar cutter followed by a series of broaches and the size 7 had an excellent fit and fill. I trialed a 1.5 standard and a 1.5 high offset and was more pleased with the high offset. His soft tissue tension was appropriate. It was noted that through mid flexion that there was a little clicking in his knee and this may be related to some arthritis, but we could palpate it over the anterior and lateral aspect of the knee and this was with both trial components. Soft tissue tension was appropriate with the high offset and I was more pleased with the stability and there was minimal shuck in full extension, excellent stability in external rotation and full extension and flexion with internal rotation. I then removed the trial components, irrigated again, as I had multiple times and placed the actual size 7 high offset stem, impacted it in place and made sure it was well seated. I then impacted the 36, +1.5 ceramic head over the taper, which was dried. We reduced the hip and again put the hip through a range of motion. I was very pleased with the stability and the soft tissue tension. There was minimal shuck in full extension. I then irrigated and placed the TXA deep in the wound. I repaired the minimus with #1 Vicryl suture. The abductor was repaired with #1 Vicryl suture. Excellent repair was noted. We irrigated each level. I again irrigated and closed the fascia miguelito with #1 Vicryl suture and running Stratafix in both directions, obtaining a good closure, although proximally the fascia as I mentioned did turn more into muscle. Then irrigated and closed the subcutaneous with #2-0 Vicryl and the skin with sheba. We had used the Stratafix in the fascial layer. Sterile dressing was applied. The patient was taken to recovery room in stable condition. There were no known complications. The plan will be routine postop. The corporate legal assistant was instrumental holding retractors, assisting in reducing and dislocating the hip and assisting in wound closure.
[2018-10-09] MEDS ORDERED: PROPOFOL 200 MG/20 ML VIAL As Ordered ONE (13:17)
[2018-10-09] MEDS ORDERED: PERCOCET 5MG/325MG TAB PO ONE (13:30)
[2018-10-09] MEDS: MORPHINE 4 MG/ML 1ML VIAL/SYRINGE (J2270) IV PRN ×2 (14:17→22:24)
[2018-10-09] MEDS: ONDANSETRON 4MG/2ML VIAL (J2405) IV PRN ×2 (15:15→22:23)
--- NOTE | 2018-10-09 16:50 | CR.PDOC ---
General Date of Consultation: Oct 09, 2018 Referring Provider: Jhonathan Wilkinson Attending Physician: Jhonathan Wilkinson Consultation REASON FOR CONSULTATION/CHIEF COMPLAINT: Management of RA and HTN HISTORY OF PRESENT ILLNESS: Pt is a 52 -year-old male with past medical history of RA, hypertension, hyperlipidemia and GERD who is s/p successful left hip arthroplasty. Hospitalist service consulted to help manage pt's RA and HTN. Pt reports having long history of bilateral hip pain, left greater than right. Patient started seeing Dr. Wilkinson one year ago and undergoing steroid injections. Steroid injections stop working, so decision made to undergo left total hip arthroplasty. Patient seen after procedure, doing well, only complaining of left hip and left knee pain. Patient also notes nausea with Percocet administration. Patient denies fevers, chills, chest pain, difficulty breathing, vomiting, diarrhea. ALLERGIES: Please see below. HOME MEDICATIONS: Please see below. PAST MEDICAL HISTORY: 1. Gout. 2. Gastroesophageal reflux disease. 3. Rheumatoid arthritis. 4. Hypertension. 5. Hyperlipidemia. PAST SURGICAL HISTORY: 1. Two left knee arthroscopies. 2. One right knee arthroscopy 3. Cholecystectomy. FAMILY HISTORY: -HTN, CA, RA SOCIAL HISTORY: Lives with and 3kids Works at [employer] denies smoking occasional alcohol denies illicits REVIEW OF SYSTEMS: 14 point ROS reviewed and pertinent positives and negatives documented as per HPI. All other reviewed ROS negative PHYSICAL EXAMINATION: VITAL SIGNS: Please see below. GENERAL APPEARANCE: overweight man laying in bed in NAD, Ice pack on left knee, pleasant on interview HEENT: PERRL, EOMI, OP clear RESPIRATORY: CTA b/l no w/r/r CARDIOVASCULAR: RRR, nl s1/2 no mrg ABDOMEN: overweight, soft, NTTP, ND EXTREMITIES: left hip bandaged, bandage appears clean/dry/intact, intact distal pulses, no edema NEUROLOGICAL: no focal deficits PSYCHIATRIC: nl mental status, nl mood, A&Ox3 LABORATORY DATA: Please see below. ASSESSMENT/PLAN: Pt is a 52 -year-old male with past medical history of RA, hypertension, hyperlipidemia and GERD who is s/p successful left hip arthroplasty. 1. left hip arthroplasty -doing well POD#0 -anticoagulation as per ortho -PT -will follow up labs in the AM -cont. fluids -pain control as per ortho 2. RA -on Enbrel, would hold for 14 days (2 weeks) post surgery 3. HTN -cont. losartan 4. GERD -cont. omeprazole DVT PPX: on xarelto Disposition: as per ortho Vital Signs/I&O Vital Signs Date Time Temp Pulse Resp B/P (MAP) Pulse Ox O2 Delivery O2 Flow Rate FiO2 10/09/18 14:27 18 10/09/18 12:00 96.2 63 136/94 (108) 97 10/09/18 10:45 2 Allergies Coded Allergies: No Known Allergies (Unverified , 09/25/18) Home Medications Scheduled Aspirin (Aspirin EC) 81 Mg Tab, 81 MG PO DAILY, #30 (Reported) Cholecalciferol (Vitamin D3) (Vitamin D3) 5,000 Unit Tablet, 5,000 UNIT PO DAILY, (Reported) Losartan Potassium (Losartan Potassium) 25 Mg Tab, 50 MG PO DAILY, (Reported) Omeprazole (Omeprazole) 20 Mg Capsule.dr, 20 MG PO DAILY, (Reported) [embrel] , QWEEK, (Reported) Scheduled PRN Naproxen Sodium (Aleve) 220 Mg Tablet, 220 MG PO PRN PRN for PAIN, (Reported) DAVE GUTIERREZ MD Oct 09, 2018 16:50
[2018-10-09] MEDS: PERCOCET 5MG/325MG TAB PO PRN ×2 (18:55→23:25)
[2018-10-10 02:05] VITALS: BP 165/84
[2018-10-10] MEDS: PERCOCET 5MG/325MG TAB PO PRN ×2 (04:13→08:18)
[2018-10-10 06:00] VITALS: BP 165/86
[2018-10-10 06:23] LABS: HEMATOCRIT 37.9 % (42.0-52.0); HEMOGLOBIN 12.7 g/dl (13.5-17.5); MEAN CORPUSCULAR HEMOGLOBIN 31.3 pg (27.0-33.0); MEAN CORPUSCULAR HGB CONC 33.5 g/dl (32.0-36.5); MEAN CORPUSCULAR VOLUME 93.3 fl (80.0-96.0); PLATELET COUNT, AUTOMATED 200 10^3/uL (150-450); RED BLOOD COUNT 4.06 10^6/uL (4.30-6.10); WHITE BLOOD COUNT 14.8 10^3/uL (4.0-10.0)
[2018-10-10 06:43] LABS: BLOOD UREA NITROGEN 11 MG/DL (7-18); CALCIUM LEVEL 8.5 MG/DL (8.5-10.1); CARBON DIOXIDE LEVEL 27 MEQ/L (21-32); CHLORIDE LEVEL 102 MEQ/L (98-107); CREATININE FOR GFR 0.96 MG/DL (0.70-1.30); GLOMERULAR FILTRATION RATE > 60.0 (>56); GLUCOSE, FASTING 166 MG/DL (70-100); POTASSIUM SERUM 3.7 MEQ/L (3.5-5.1); SODIUM LEVEL 136 MEQ/L (136-145)
[2018-10-10] MEDS ORDERED: PERC5TAB12 PO (07:17)
[2018-10-10] MEDS ORDERED: XARE10TA PO (07:17)
[2018-10-10] MEDS ORDERED: MIRALAX *UNIT DOSE* 17GM PACKET PO SCH (09:00)
[2018-10-10] MEDS ORDERED: MOM 30ML SUSPENSION UDC PO SCH (09:00)
[2018-10-10] MEDS: ONDANSETRON 4MG/2ML VIAL (J2405) IV PRN (10:03)
[2018-10-10] MEDS ORDERED: ZOFR4TAB16 PO (10:25)
--- NOTE | 2018-10-10 14:40 | IPNPDOC ---
Date Seen The patient was seen on 10/10/18. Progress Note SUBJECTIVE: complaining of left hip and left knee pain 5/10 at the bedside with uncontrolled bp. Improved after percocet, but had some nausea despite taking it with food. Patient denies fevers, chills, chest pain, difficulty breathing, vomiting, diarrhea. OBJECTIVE: PHYSICAL EXAMINATION: VITAL SIGNS: Please see below. GENERAL APPEARANCE: overweight man laying in bed in NAD, Ice pack on left knee, pleasant on interview HEENT: PERRL, EOMI, OP clear RESPIRATORY: CTA b/l no w/r/r CARDIOVASCULAR: RRR, nl s1/2 no mrg ABDOMEN: overweight, soft, NTTP, ND EXTREMITIES: left hip bandaged, bandage appears clean/dry/intact, intact distal pulses, no edema NEUROLOGICAL: no focal deficits PSYCHIATRIC: nl mental status, nl mood, A&Ox3 LABORATORY DATA: Please see below. ASSESSMENT/PLAN: Pt is a 52 -year-old male with past medical history of RA, hypertension, hyperlipidemia and GERD who is s/p successful left hip arthroplasty. Hospitalist service consulted to help manage pt's RA and HTN. Pt reports having long history of bilateral hip pain, left greater than right. Patient started seeing Dr. Wilkinson one year ago and undergoing steroid injections. Steroid injections stop working, so decision made to undergo left total hip arthroplasty. left hip arthroplasty -doing well POD#1 -anticoagulation as per ortho -CLEARED by PHYSICAL THERAPY FOR DC HOME -pain control as per ortho RA -on Enbrel, would hold for 14 days (2 weeks) post surgery HTN -cont. losartan GERD -cont. omeprazole Gout. -no acute issues Hyperlipidemia. -resumed home meds DVT PPX: on xarelto Disposition: per primary team VS, I&O, 24H, Dana Vital Signs/I&O Vital Signs Date Time Temp Pulse Resp B/P (MAP) Pulse Ox O2 Delivery O2 Flow Rate FiO2 10/10/18 08:48 16 10/10/18 06:00 97.8 93 165/86 (112) 96 10/09/18 10:45 2 I&O- Last 24 Hours up to 6 AM 10/10/18 06:00 Intake Total 3600 ml Output Total 2100 ml Balance 1500 ml Laboratory Data 24H LABS Laboratory Tests 2 10/10/18 05:57: Nucleated Red Blood Cells % (auto) 0.0, Anion Gap 7L, Glomerular Filtration Rate > 60.0, Blood Urea Nitrogen 11, Creatinine 0.96, Sodium Level 136, Potassium Level 3.7, Chloride Level 102, Carbon Dioxide Level 27, Calcium Level 8.5 CBC/BMP Laboratory Tests 10/10/18 05:57 Red Blood Count 4.06 L, Mean Corpuscular Volume 93.3, Mean Corpuscular Hemoglobin 31.3, Mean Corpuscular Hemoglobin Concent 33.5, Red Cell Distribution Width 12.1, Calcium Level 8.5 GRUPO BARBOZA MD Oct 10, 2018 14:40
[2018-10-10] MEDS ORDERED: RIVAROXABAN 10 MG TAB (XARELTO) PO SCH (18:00)
--- NOTE | 2018-10-14 10:26 | DSES ---
DATE OF ADMISSION: 10/09/2018 DATE OF DISCHARGE: 10/10/2018 ATTENDING PHYSICIAN: Dr. Jhonathan Wilkinson ADMISSION DIAGNOSIS: Right hip osteoarthritis. OTHER DIAGNOSES: Gout, gastroesophageal reflux disease, rheumatoid arthritis, hypertension, hyperlipidemia. DISCHARGE DIAGNOSIS: Right hip osteoarthritis status post right total hip arthroplasty. HISTORY: The patient is a 52-year-old male with progressively worsening right hip pain and stiffness. He failed to improve with conservative measures. He continued to have symptoms with weightbearing activities and activities of daily living. He consented for an elective right total hip arthroplasty with Dr. Wilkinson for his continued symptoms. OPERATION PERFORMED: Right total hip arthroplasty. HOSPITAL COURSE: The patient underwent a right total hip arthroplasty under spinal anesthesia which was uneventful. His hospital course was without complication and he was up with physical therapy per their protocol. Weightbearing as tolerated on the right lower extremity. The patient was discharged on oral pain medications and will resume his preoperative medications and diet. The patient will use his thromboembolic deterrent stockings and take his anticoagulant postoperatively to prevent deep venous thrombosis. The patient will followup in our office in 12- 14 days for wound check and staple removal. He is encouraged to contact our office sooner if there is any increase in pain, redness, drainage, numbness or tingling in the extremity, fever greater than 101 degrees or any other concerns. Please see medical record for additional details. MADELINE
== END 2018-10-10 11:00 | disposition home or self-care (01) | DRG 470 ==
LOC: M OR 07:02 → M MS5PR 11:25
PROVIDERS: ADMIT Orthopaedic Surgery; ATTEND Orthopaedic Surgery
PROC: 0SRB03Z Replacement of Left Hip Joint with Ceramic Synthetic Substitute, Open Approach (ICD-10-PCS; principal; 2018-10-09 08:30)
DX: M16.12 Unilateral primary osteoarthritis, left hip (principal); M10.9 Gout, unspecified; I10 Essential (primary) hypertension; E78.5 Hyperlipidemia, unspecified; K21.9 Gastro-esophageal reflux disease without esophagitis; M06.9 Rheumatoid arthritis, unspecified; Z90.49 Acquired absence of other specified parts of digestive tract; Z79.82 Long term (current) use of aspirin

== ENCOUNTER → 2018-10-25 | Outpatient (REF) | payer OTHER ==
[~2018-10-25] MED LIST changes: -BUPIVACAINE LIPOSOME/PF 1.3% 20ML VIAL (13.3MG/ML)(EXPAREL)(C9290 PER1MG) As Ordered ONE; -EPINEPHrine INJ 1 MG/ML 1ML AMP As Ordered ONE; -LIDOCAINE 1% MDV 20ML VIAL SQ PRN; -LR 1,000 ML IV ONE; +PERC5TAB12 PO; -TRANEXAMIC ACID 100 MG/ML 10ML VIAL As Ordered ONE; +XARE10TA PO; +ZOFR4TAB16 PO; -ceFAZolin 1GM INJ (J0690 PER 500MG) As Ordered ONE
[2018-10-25 11:35] LABS: BASO # 0.1 10^3/uL (0.0-0.2); BASO % 0.9 % (0.0-1.0); EOS # 0.2 10^3/uL (0.0-0.50); EOS % 1.4 % (0.0-3.0); HEMATOCRIT 42.2 % (42.0-52.0); HEMOGLOBIN 13.7 g/dl (13.5-17.5); LYMPH # 1.8 10^3/uL (1.5-4.5); LYMPH % 16.7 % (24.0-44.0); MEAN CORPUSCULAR HEMOGLOBIN 32.2 pg (27.0-33.0); MEAN CORPUSCULAR HGB CONC 32.5 g/dl (32.0-36.5); MEAN CORPUSCULAR VOLUME 99.1 fl (80.0-96.0); MONO # 0.8 10^3/uL (0.0-0.8); MONO % 7.1 % (0.0-5.0); NEUTROPHILS # 8.1 10^3/uL (1.8-7.7); NEUTROPHILS % 73.2 % (36.0-66.0); PLATELET COUNT, AUTOMATED 482 10^3/uL (150-450); RED BLOOD COUNT 4.26 10^6/uL (4.30-6.10)
[2018-10-25 11:50] LABS: ALBUMIN 3.6 GM/DL (3.2-5.2); ALT/SGPT 38 U/L (12-78); BILIRUBIN,TOTAL 0.4 MG/DL (0.2-1.0); BLOOD UREA NITROGEN 18 MG/DL (7-18); CALCIUM LEVEL 9.5 MG/DL (8.5-10.1); CARBON DIOXIDE LEVEL 25 MEQ/L (21-32); CHLORIDE LEVEL 106 MEQ/L (98-107); CREATININE FOR GFR 0.99 MG/DL (0.70-1.30); GLOMERULAR FILTRATION RATE > 60.0 (>56); GLUCOSE, FASTING 113 MG/DL (70-100); POTASSIUM SERUM 4.3 MEQ/L (3.5-5.1); SODIUM LEVEL 141 MEQ/L (136-145); TOTAL PROTEIN 7.5 GM/DL (6.4-8.2)
[2018-10-25 12:03] LABS: ERYTHROCYTE SEDIMENTATION RATE 69 mm/hr (0-20)
[2018-10-25 12:21] LABS: MALB URINE SIEMENS 27.3 MG/L; MAU/CREAT RATIO 9.4 MCG/MG (0.0-30.0)
== END ==
LOC: M SFHCPLAZ 09:23
PROVIDERS: ATTEND Family Medicine
DX: I10 Essential (primary) hypertension (principal); R74.8 Abnormal levels of other serum enzymes

== ENCOUNTER → 2018-11-22 | Outpatient (REF) | payer OTHER ==
[2018-11-22 12:18] LABS: BASO # 0.1 10^3/uL (0.0-0.2); BASO % 1.1 % (0.0-1.0); EOS # 0.1 10^3/uL (0.0-0.5); EOS % 2.2 % (0.0-3.0); HEMOGLOBIN 14.8 g/dl (13.5-17.5); LYMPH # 1.2 10^3/uL (1.5-5.0); LYMPH % 22.6 % (24.0-44.0); MEAN CORPUSCULAR HEMOGLOBIN 31.6 pg (27.0-33.0); MEAN CORPUSCULAR HGB CONC 32.9 g/dl (32.0-36.5); MEAN CORPUSCULAR VOLUME 95.9 fl (80.0-96.0); MONO # 0.5 10^3/uL (0.0-0.8); MONO % 9.5 % (0.0-5.0); NEUTROPHILS # 3.5 10^3/uL (1.5-8.5); NEUTROPHILS % 64.2 % (36.0-66.0); PLATELET COUNT, AUTOMATED 229 10^3/uL (150-450); RED BLOOD COUNT 4.69 10^6/uL (4.30-6.10); WHITE BLOOD COUNT 5.5 10^3/uL (4.0-10.0)
[2018-11-22 12:35] LABS: ALBUMIN 3.8 GM/DL (3.2-5.2); ALT/SGPT 43 U/L (12-78); BILIRUBIN,TOTAL 0.5 MG/DL (0.2-1.0); BLOOD UREA NITROGEN 15 MG/DL (7-18); C REACTIVE PROTEIN QUANTITATIV 0.46 MG/DL (0.00-0.30); CALCIUM LEVEL 9.5 MG/DL (8.5-10.1); CARBON DIOXIDE LEVEL 24 MEQ/L (21-32); CHLORIDE LEVEL 107 MEQ/L (98-107); CREATININE FOR GFR 0.86 MG/DL (0.70-1.30); GAMMA GLUTAMYLTRANSPEPTIDASE 70 U/L (15-85); GLOMERULAR FILTRATION RATE > 60.0 (>56); GLUCOSE, FASTING 111 MG/DL (70-100); SODIUM LEVEL 141 MEQ/L (136-145)
[2018-11-22 12:48] LABS: ERYTHROCYTE SEDIMENTATION RATE 17 mm/hr (0-20)
[2018-11-25 00:07] LABS: Alkaline Phosphatase Iso-Bone 40 % (12-68); Alkaline Phosphatase Iso-Intes 12 % (0-18); Alkaline Phosphatase Iso-Liver 48 % (13-88); TOTAL ALK PHOS 131 IU/L (39-117)
== END ==
LOC: M LABDRAW1 09:36
PROVIDERS: ATTEND Internal Medicine Rheumatology
DX: R74.8 Abnormal levels of other serum enzymes (principal); M06.09 Rheumatoid arthritis without rheumatoid factor, multiple sites

== ENCOUNTER → 2019-02-19 | Outpatient (REF) | payer OTHER ==
[~2019-02-19] MED LIST changes: +OMEP-172 PO; -OMEP20CA4 PO
[2019-02-19 17:06] LABS: BASO # 0.1 10^3/uL (0.0-0.2); BASO % 1.2 % (0.0-1.0); EOS # 0.1 10^3/uL (0.0-0.5); EOS % 1.9 % (0.0-3.0); HEMATOCRIT 49.6 % (42.0-52.0); HEMOGLOBIN 15.7 g/dl (13.5-17.5); LYMPH # 2.3 10^3/uL (1.5-5.0); LYMPH % 30.1 % (24.0-44.0); MEAN CORPUSCULAR HEMOGLOBIN 30.4 pg (27.0-33.0); MEAN CORPUSCULAR HGB CONC 31.7 g/dl (32.0-36.5); MEAN CORPUSCULAR VOLUME 95.9 fl (80.0-96.0); MONO # 0.7 10^3/uL (0.0-0.8); MONO % 8.8 % (0.0-5.0); NEUTROPHILS # 4.3 10^3/uL (1.5-8.5); NEUTROPHILS % 57.6 % (36.0-66.0); PLATELET COUNT, AUTOMATED 219 10^3/uL (150-450); RED BLOOD COUNT 5.17 10^6/uL (4.30-6.10); WHITE BLOOD COUNT 7.5 10^3/uL (4.0-10.0)
[2019-02-19 17:58] LABS: ERYTHROCYTE SEDIMENTATION RATE 9 mm/hr (0-20)
[2019-02-19 21:52] LABS: ALBUMIN 3.9 GM/DL (3.2-5.2); ALT/SGPT 35 U/L (12-78); BILIRUBIN,TOTAL 0.5 MG/DL (0.2-1.0); BLOOD UREA NITROGEN 15 MG/DL (7-18); C REACTIVE PROTEIN QUANTITATIV 0.41 MG/DL (0.00-0.30); CALCIUM LEVEL 8.9 MG/DL (8.5-10.1); CARBON DIOXIDE LEVEL 28 MEQ/L (21-32); CHLORIDE LEVEL 107 MEQ/L (98-107); CREATININE FOR GFR 0.95 MG/DL (0.70-1.30); GLOMERULAR FILTRATION RATE > 60.0 (>56); GLUCOSE, FASTING 102 MG/DL (70-100); POTASSIUM SERUM 4.3 MEQ/L (3.5-5.1); SODIUM LEVEL 140 MEQ/L (136-145); TOTAL PROTEIN 7.5 GM/DL (6.4-8.2)
== END ==
LOC: M SFHCLERA 11:16
PROVIDERS: ATTEND Internal Medicine Rheumatology
DX: M06.9 Rheumatoid arthritis, unspecified (principal)

== ENCOUNTER → 2019-04-02 | Outpatient (CLI) | payer OTHER ==
[~2019-04-02] MED LIST changes: -OMEP-172 PO; +OMEP1CAP73 PO
--- NOTE | 2019-04-03 15:26 | SLEEPCENT ---
DATE OF PROCEDURE: 04/02/2019 ORDERED BY: RAMIRO Bucio Nocturnal polysomnography was performed for the titration of pressure therapy in this patient with a history of obstructive sleep apnea syndrome. Apnea-hypopnea index 13.7. For testing, the patient was fit with a ResMed Air Fit N20 medium sized mask, 4 cm of water pressure were applied to the circuit and the lights were extinguished. 6 hours and 30 minutes of data were reviewed. There were 366 minutes of sleep identified. Sleep latency was normal at 14.5 minutes. Rapid eye movement (REM) latency was normal at 64 minutes. Sleep architecture was good with four REM cycles. Overall sleep efficiency 87.3%. The patient's electrocardiogram showed sinus rhythm with an average heart rate of 66 per minute. Electroencephalogram (EEG) showed normal waveforms for awake and sleep stages. Respiratory events were best palliated with C-PAP to a pressure of +14. Remaining measures of sleep physiology were normal. IMPRESSION: Obstructive sleep apnea syndrome (G47.33). RECOMMENDATIONS: Nightly use of pressure therapy 14 cm of water.
== END ==
LOC: M SLEEP 19:42
PROVIDERS: ATTEND Physician Assistant
DX: G47.33 Obstructive sleep apnea (adult) (pediatric) (principal)

== ENCOUNTER → 2019-04-13 | Outpatient (CLI) | payer OTHER ==
[2019-04-13 14:22] LABS: BASO # 0.1 10^3/uL (0.0-0.2); BASO % 1.4 % (0.0-1.0); EOS # 0.2 10^3/uL (0.0-0.5); EOS % 2.4 % (0.0-3.0); LYMPH # 2.4 10^3/uL (1.5-5.0); LYMPH % 33.1 % (24.0-44.0); MEAN CORPUSCULAR HGB CONC 33.3 g/dl (32.0-36.5); MEAN CORPUSCULAR VOLUME 95.9 fl (80.0-96.0); MONO # 0.7 10^3/uL (0.0-0.8); MONO % 9.8 % (0.0-5.0); NEUTROPHILS # 3.9 10^3/uL (1.5-8.5); PLATELET COUNT, AUTOMATED 209 10^3/uL (150-450); RED BLOOD COUNT 4.69 10^6/uL (4.30-6.10); WHITE BLOOD COUNT 7.4 10^3/uL (4.0-10.0)
[2019-04-13 14:27] LABS: ALBUMIN 3.7 GM/DL (3.2-5.2); ALT/SGPT 36 U/L (12-78); BILIRUBIN,TOTAL 0.5 MG/DL (0.2-1.0); BLOOD UREA NITROGEN 13 MG/DL (7-18); C REACTIVE PROTEIN QUANTITATIV 0.32 MG/DL (0.00-0.30); CALCIUM LEVEL 9.2 MG/DL (8.5-10.1); CARBON DIOXIDE LEVEL 28 MEQ/L (21-32); CHLORIDE LEVEL 108 MEQ/L (98-107); CREATININE FOR GFR 0.98 MG/DL (0.70-1.30); GLOMERULAR FILTRATION RATE > 60.0 (>56); GLUCOSE, FASTING 97 MG/DL (70-100); POTASSIUM SERUM 4.2 MEQ/L (3.5-5.1); SODIUM LEVEL 140 MEQ/L (136-145)
[2019-04-13 22:01] LABS: ERYTHROCYTE SEDIMENTATION RATE 12 mm/hr (0-20)
== END ==
LOC: M LRY 12:33
PROVIDERS: ATTEND Internal Medicine
DX: M06.9 Rheumatoid arthritis, unspecified (principal)

== ENCOUNTER → 2019-07-07 | Outpatient (REF) | payer OTHER ==
[2019-07-07 18:03] LABS: BASO # 0.1 10^3/uL (0.0-0.2); BASO % 0.9 % (0.0-1.0); EOS # 0.2 10^3/uL (0.0-0.5); EOS % 2.5 % (0.0-3.0); HEMATOCRIT 44.9 % (42.0-52.0); LYMPH # 2.3 10^3/uL (1.5-5.0); LYMPH % 25.7 % (24.0-44.0); MEAN CORPUSCULAR HEMOGLOBIN 32.6 pg (27.0-33.0); MEAN CORPUSCULAR HGB CONC 33.4 g/dl (32.0-36.5); MEAN CORPUSCULAR VOLUME 97.6 fl (80.0-96.0); MONO # 0.9 10^3/uL (0.0-0.8); MONO % 10.3 % (0.0-5.0); NEUTROPHILS # 5.4 10^3/uL (1.5-8.5); NEUTROPHILS % 60.4 % (36.0-66.0); PLATELET COUNT, AUTOMATED 219 10^3/uL (150-450); WHITE BLOOD COUNT 8.9 10^3/uL (4.0-10.0)
[2019-07-07 18:08] LABS: ALBUMIN 3.8 GM/DL (3.2-5.2); ALT/SGPT 56 U/L (12-78); BILIRUBIN,TOTAL 0.5 MG/DL (0.2-1.0); BLOOD UREA NITROGEN 17 MG/DL (7-18); C REACTIVE PROTEIN QUANTITATIV < 0.30 MG/DL (0.00-0.30); CALCIUM LEVEL 9.4 MG/DL (8.5-10.1); CARBON DIOXIDE LEVEL 28 MEQ/L (21-32); CHLORIDE LEVEL 107 MEQ/L (98-107); CREATININE FOR GFR 1.06 MG/DL (0.70-1.30); GLOMERULAR FILTRATION RATE > 60.0 (>56); GLUCOSE, FASTING 125 MG/DL (70-100); SODIUM LEVEL 139 MEQ/L (136-145); TOTAL PROTEIN 7.2 GM/DL (6.4-8.2)
[2019-07-07 18:30] LABS: ERYTHROCYTE SEDIMENTATION RATE 20 mm/hr (0-20)
== END ==
LOC: M SFHCLERA 15:35
PROVIDERS: ATTEND Internal Medicine
DX: M06.09 Rheumatoid arthritis without rheumatoid factor, multiple sites (principal)

== ENCOUNTER → 2019-07-11 | Outpatient (REF) | payer OTHER ==
[2019-07-11 16:26] LABS: CHOLESTEROL RISK RATIO 5.682 (<5)
== END ==
LOC: M SFHCLERA 09:27
PROVIDERS: ATTEND Family Medicine
DX: E78.2 Mixed hyperlipidemia (principal)

== ENCOUNTER → 2019-07-16 | Outpatient (REF) | payer OTHER ==
[2019-07-17 14:19] LABS: HEMOGLOBIN A1c 6.8 %
== END ==
LOC: M LRY 11:18
PROVIDERS: ATTEND Family Medicine
DX: R73.01 Impaired fasting glucose (principal)

== ENCOUNTER → 2019-09-19 | Outpatient (REF) | payer OTHER ==
[2019-09-19 19:21] LABS: BASO # 0.1 10^3/uL (0.0-0.2); BASO % 1.1 % (0.0-1.0); EOS # 0.2 10^3/uL (0.0-0.5); HEMATOCRIT 45.6 % (42.0-52.0); HEMOGLOBIN 15.4 g/dl (13.5-17.5); LYMPH # 2.5 10^3/uL (1.5-5.0); LYMPH % 29.6 % (24.0-44.0); MEAN CORPUSCULAR HEMOGLOBIN 32.9 pg (27.0-33.0); MEAN CORPUSCULAR HGB CONC 33.8 g/dl (32.0-36.5); MEAN CORPUSCULAR VOLUME 97.4 fl (80.0-96.0); MONO # 0.7 10^3/uL (0.0-0.8); MONO % 8.6 % (0.0-5.0); NEUTROPHILS % 58.3 % (36.0-66.0); PLATELET COUNT, AUTOMATED 227 10^3/uL (150-450); RED BLOOD COUNT 4.68 10^6/uL (4.30-6.10); WHITE BLOOD COUNT 8.5 10^3/uL (4.0-10.0)
[2019-09-19 19:45] LABS: ERYTHROCYTE SEDIMENTATION RATE 7 mm/hr (0-20)
[2019-09-19 19:59] LABS: ALT/SGPT 39 U/L (12-78); BILIRUBIN,TOTAL 0.5 MG/DL (0.2-1.0); BLOOD UREA NITROGEN 15 MG/DL (7-18); C REACTIVE PROTEIN QUANTITATIV < 0.30 MG/DL (0.00-0.30); CALCIUM LEVEL 8.7 MG/DL (8.5-10.1); CARBON DIOXIDE LEVEL 23 MEQ/L (21-32); CHLORIDE LEVEL 107 MEQ/L (98-107); CREATININE FOR GFR 0.86 MG/DL (0.70-1.30); GLOMERULAR FILTRATION RATE > 60.0 (>56); GLUCOSE, FASTING 66 MG/DL (70-100); POTASSIUM SERUM 4.2 MEQ/L (3.5-5.1); SODIUM LEVEL 138 MEQ/L (136-145); TOTAL PROTEIN 7.1 GM/DL (6.4-8.2)
== END ==
LOC: M SFHCLERA 15:30
PROVIDERS: ATTEND Internal Medicine Rheumatology
DX: M06.09 Rheumatoid arthritis without rheumatoid factor, multiple sites (principal)

== ENCOUNTER → 2019-10-22 | Outpatient (REF) | payer OTHER ==
[2019-12-31 13:46] LABS: HEMOGLOBIN A1c 5.8 %
== END ==
LOC: M SFHCPLAZ 10:55
PROVIDERS: ATTEND Family Medicine
DX: E11.9 Type 2 diabetes mellitus without complications (principal)

== ENCOUNTER → 2019-12-26 | Outpatient (REF) | payer OTHER ==
[2019-12-26 11:59] LABS: BASO # 0.1 10^3/uL (0.0-0.2); BASO % 1.1 % (0.0-1.0); EOS # 0.2 10^3/uL (0.0-0.5); EOS % 2.3 % (0.0-3.0); HEMATOCRIT 48.8 % (42.0-52.0); HEMOGLOBIN 15.8 g/dl (13.5-17.5); LYMPH # 1.9 10^3/uL (1.5-5.0); LYMPH % 29.4 % (24.0-44.0); MEAN CORPUSCULAR HGB CONC 32.4 g/dl (32.0-36.5); MEAN CORPUSCULAR VOLUME 98.8 fl (80.0-96.0); MONO # 0.5 10^3/uL (0.0-0.8); MONO % 8.1 % (0.0-5.0); NEUTROPHILS # 3.8 10^3/uL (1.5-8.5); NEUTROPHILS % 58.8 % (36.0-66.0); PLATELET COUNT, AUTOMATED 212 10^3/uL (150-450); RED BLOOD COUNT 4.94 10^6/uL (4.30-6.10); WHITE BLOOD COUNT 6.4 10^3/uL (4.0-10.0)
[2019-12-26 12:27] LABS: ALBUMIN 3.9 GM/DL (3.2-5.2); ALT/SGPT 53 U/L (12-78); BILIRUBIN,TOTAL 0.7 MG/DL (0.2-1.0); BLOOD UREA NITROGEN 18 MG/DL (7-18); CALCIUM LEVEL 9.5 MG/DL (8.5-10.1); CARBON DIOXIDE LEVEL 26 MEQ/L (21-32); CHLORIDE LEVEL 108 MEQ/L (98-107); CREATININE FOR GFR 0.89 MG/DL (0.70-1.30); GLOMERULAR FILTRATION RATE > 60.0 (>56); GLUCOSE, FASTING 107 MG/DL (70-100); POTASSIUM SERUM 4.2 MEQ/L (3.5-5.1); SODIUM LEVEL 140 MEQ/L (136-145); TOTAL PROTEIN 7.3 GM/DL (6.4-8.2)
[2019-12-26 12:40] LABS: HEPATITIS B SURFACE ANTIGEN NEGATIVE (NEGATIVE)
[2019-12-26 12:45] LABS: ERYTHROCYTE SEDIMENTATION RATE 6 mm/hr (0-20)
[2019-12-26 13:09] LABS: HEPATITIS C VIRUS ABY INDEX 0.1 INDEX (<0.8)
== END ==
LOC: M SFHCRHEU 08:44
PROVIDERS: ATTEND Internal Medicine
DX: M06.09 Rheumatoid arthritis without rheumatoid factor, multiple sites (principal)
CPT/HCPCS: 80053; 85025; 85652; 86140; 86480; 86704; 86803; 87340; G0463

== ENCOUNTER → 2020-02-12 | Outpatient (CLI) | payer OTHER ==
[2020-02-12 12:59] LABS: BASO # 0.1 10^3/uL (0.0-0.2); EOS # 0.2 10^3/uL (0.0-0.5); EOS % 2.2 % (0.0-3.0); HEMATOCRIT 47.7 % (42.0-52.0); HEMOGLOBIN 15.4 g/dl (13.5-17.5); LYMPH % 28.6 % (24.0-44.0); MEAN CORPUSCULAR HEMOGLOBIN 31.7 pg (27.0-33.0); MEAN CORPUSCULAR HGB CONC 32.3 g/dl (32.0-36.5); MEAN CORPUSCULAR VOLUME 98.1 fl (80.0-96.0); MONO # 0.6 10^3/uL (0.0-0.8); NEUTROPHILS # 4.1 10^3/uL (1.5-8.5); NEUTROPHILS % 58.8 % (36.0-66.0); PLATELET COUNT, AUTOMATED 208 10^3/uL (150-450); RED BLOOD COUNT 4.86 10^6/uL (4.30-6.10); WHITE BLOOD COUNT 6.9 10^3/uL (4.0-10.0)
[2020-02-12 13:25] LABS: ERYTHROCYTE SEDIMENTATION RATE 8 mm/hr (0-20)
[2020-02-12 13:40] LABS: ALBUMIN 3.9 GM/DL (3.2-5.2); ALT/SGPT 37 U/L (12-78); BILIRUBIN,TOTAL 0.7 MG/DL (0.2-1.0); BLOOD UREA NITROGEN 14 MG/DL (7-18); C REACTIVE PROTEIN QUANTITATIV 0.37 MG/DL (0.00-0.30); CALCIUM LEVEL 9.4 MG/DL (8.5-10.1); CARBON DIOXIDE LEVEL 26 MEQ/L (21-32); CHLORIDE LEVEL 106 MEQ/L (98-107); CREATININE FOR GFR 0.87 MG/DL (0.70-1.30); GLOMERULAR FILTRATION RATE > 60.0 (>56); GLUCOSE, FASTING 98 MG/DL (70-100); POTASSIUM SERUM 4.3 MEQ/L (3.5-5.1); SODIUM LEVEL 139 MEQ/L (136-145); TOTAL PROTEIN 7.6 GM/DL (6.4-8.2)
== END ==
LOC: M WUC 10:53
PROVIDERS: ATTEND Internal Medicine
DX: M06.09 Rheumatoid arthritis without rheumatoid factor, multiple sites (principal)

== ENCOUNTER → 2020-04-14 | Outpatient (REF) | payer OTHER ==
[2020-04-14 13:54] LABS: BASO # 0.1 10^3/uL (0.0-0.2); BASO % 0.8 % (0.0-1.0); EOS # 0.2 10^3/uL (0.0-0.5); EOS % 2.5 % (0.0-3.0); HEMATOCRIT 46.1 % (42.0-52.0); HEMOGLOBIN 15.3 g/dl (13.5-17.5); LYMPH # 2.2 10^3/uL (1.5-5.0); LYMPH % 29.2 % (24.0-44.0); MEAN CORPUSCULAR HEMOGLOBIN 32.8 pg (27.0-33.0); MEAN CORPUSCULAR HGB CONC 33.2 g/dl (32.0-36.5); MEAN CORPUSCULAR VOLUME 98.7 fl (80.0-96.0); MONO # 0.7 10^3/uL (0.0-0.8); NEUTROPHILS # 4.4 10^3/uL (1.5-8.5); PLATELET COUNT, AUTOMATED 208 10^3/uL (150-450); RED BLOOD COUNT 4.67 10^6/uL (4.30-6.10); WHITE BLOOD COUNT 7.5 10^3/uL (4.0-10.0)
[2020-04-14 14:15] LABS: ERYTHROCYTE SEDIMENTATION RATE 9 mm/hr (0-20)
[2020-04-14 14:24] LABS: ALBUMIN 3.9 GM/DL (3.2-5.2); ALT/SGPT 38 U/L (12-78); BILIRUBIN,TOTAL 0.6 MG/DL (0.2-1.0); BLOOD UREA NITROGEN 17 MG/DL (7-18); CALCIUM LEVEL 9.3 MG/DL (8.5-10.1); CARBON DIOXIDE LEVEL 25 MEQ/L (21-32); CHLORIDE LEVEL 106 MEQ/L (98-107); CREATININE FOR GFR 0.93 MG/DL (0.70-1.30); GLOMERULAR FILTRATION RATE > 60.0 (>56); GLUCOSE, FASTING 106 MG/DL (70-100); POTASSIUM SERUM 4.1 MEQ/L (3.5-5.1); SODIUM LEVEL 140 MEQ/L (136-145); TOTAL PROTEIN 7.1 GM/DL (6.4-8.2)
== END ==
LOC: M PLALAB 09:24
PROVIDERS: ATTEND Internal Medicine
DX: M06.09 Rheumatoid arthritis without rheumatoid factor, multiple sites (principal)

== ENCOUNTER → 2020-05-04 | Outpatient (REF) | payer OTHER ==
[2020-05-04 13:16] LABS: HEMOGLOBIN A1c 5.8 %
== END ==
LOC: M PLALAB 08:08
PROVIDERS: ATTEND Family Medicine
DX: R73.03 Prediabetes (principal)

== ENCOUNTER → 2020-05-07 | Outpatient (REF) | payer OTHER ==
[2020-05-07 12:37] LABS: MALB URINE SIEMENS 29.6 MG/L; MAU/CREAT RATIO 9.6 MCG/MG (0.0-30.0)
== END ==
LOC: M SFHCPLAZ 10:11
PROVIDERS: ATTEND Family Medicine
DX: E11.9 Type 2 diabetes mellitus without complications (principal)

== ENCOUNTER → 2020-05-24 | Outpatient (CLI) | payer OTHER ==
[2020-05-24 13:05] LABS: BASO # 0.1 10^3/uL (0.0-0.2); BASO % 0.8 % (0.0-1.0); EOS # 0.2 10^3/uL (0.0-0.5); EOS % 1.4 % (0.0-3.0); HEMATOCRIT 41.1 % (42.0-52.0); HEMOGLOBIN 13.5 g/dl (13.5-17.5); MEAN CORPUSCULAR HEMOGLOBIN 32.9 pg (27.0-33.0); MEAN CORPUSCULAR HGB CONC 32.8 g/dl (32.0-36.5); MEAN CORPUSCULAR VOLUME 100.2 fl (80.0-96.0); MONO % 9.3 % (2.0-8.0); NEUTROPHILS # 7.7 10^3/uL (1.5-8.5); NEUTROPHILS % 69.9 % (36.0-66.0); PLATELET COUNT, AUTOMATED 273 10^3/uL (150-450)
[2020-05-24 13:36] LABS: ERYTHROCYTE SEDIMENTATION RATE 39 mm/hr (0-20)
== END ==
LOC: M PLALAB 12:06
PROVIDERS: ATTEND Orthopaedic Surgery
DX: Z96.642 Presence of left artificial hip joint (principal)

== ENCOUNTER → 2020-05-31 | Outpatient (CLI) | payer OTHER ==
[2020-05-31 14:07] LABS: BASO # 0.1 10^3/uL (0.0-0.2); BASO % 0.8 % (0.0-1.0); EOS # 0.2 10^3/uL (0.0-0.5); EOS % 1.9 % (0.0-3.0); HEMATOCRIT 42.7 % (42.0-52.0); HEMOGLOBIN 13.9 g/dl (13.5-17.5); LYMPH # 2.1 10^3/uL (1.5-5.0); LYMPH % 21.8 % (24.0-44.0); MEAN CORPUSCULAR HEMOGLOBIN 33.2 pg (27.0-33.0); MEAN CORPUSCULAR HGB CONC 32.6 g/dl (32.0-36.5); MEAN CORPUSCULAR VOLUME 101.9 fl (80.0-96.0); MONO # 0.9 10^3/uL (0.0-0.8); MONO % 9.2 % (2.0-8.0); NEUTROPHILS # 6.3 10^3/uL (1.5-8.5); NEUTROPHILS % 65.2 % (36.0-66.0); PLATELET COUNT, AUTOMATED 285 10^3/uL (150-450); RED BLOOD COUNT 4.19 10^6/uL (4.30-6.10); WHITE BLOOD COUNT 9.7 10^3/uL (4.0-10.0)
[2020-05-31 14:41] LABS: ERYTHROCYTE SEDIMENTATION RATE 16 mm/hr (0-20)
== END ==
LOC: M PLALAB 10:49
PROVIDERS: ATTEND Orthopaedic Surgery
DX: M25.552 Pain in left hip (principal)

== ENCOUNTER → 2020-06-10 | Outpatient (CLI) | payer OTHER ==
[~2020-06-10] MED LIST changes: +FOLI1TAB11 PO; +GABA600T4 PO; +METH2.5T48 PO; +[UNRECOGNIZED DRUG - OTHER] PO
--- NOTE | 2020-06-10 17:37 | REP ---
INDICATION: PAIN LT HIP. COMPARISON: None. TECHNIQUE: The procedure was performed under the direct supervision of Dr. Berg. The risks and benefits of the procedure were explained to the patient and informed consent was obtained. The left hip prosthesis was localized using fluoroscopic guidance. The skin was prepped and draped in a sterile fashion. 1% lidocaine was used as a local anesthetic. Using fluoroscopic guidance a 22 gauge spinal needle was inserted and advanced to the prosthetic femoral neck. A few drops of red colored aspirate were obtained and sent to the lab for analysis. The patient tolerated the procedure well and there were no immediate complications. Less than 6 seconds of fluoro time was utilized for this procedure. FINDINGS: None IMPRESSION: Fluoro guidance for left hip aspiration. <Electronically signed by Jairo White > 06/10/20 [id number] <Electronically signed by Skip Berg > 06/10/20 [id number]
== END ==
LOC: M IRPRO 13:42
PROVIDERS: ATTEND Orthopaedic Surgery
DX: M25.552 Pain in left hip (principal); Z96.642 Presence of left artificial hip joint

== ENCOUNTER → 2020-06-10 | Outpatient (REF) | payer OTHER ==
[2020-06-10 15:59] LABS: SOURCE, BODY FLUID LT HIP; SYNOVIAL FLUID COLOR RED (YELLOW)
[2020-06-10 16:00] LABS: CRYSTALS, BODY FLUID NONE SEEN (NONE SEEN); SOURCE, BODY FLUID CRYSTALS LEFT HIP; SOURCE, BODY FLUID GLUCOSE HIP LEFT
== END ==
LOC: M LAB REF 15:13
PROVIDERS: ATTEND Orthopaedic Surgery
DX: M25.552 Pain in left hip (principal)

== ENCOUNTER → 2020-06-18 | Outpatient (CLI) | payer OTHER ==
--- NOTE | 2020-06-18 14:58 | REP ---
INDICATION: PAIN IN LEFT HIP, R/O FX, LOOSENING LT HIP. COMPARISON: Left hip plain film study dated 10/09/2018. TECHNIQUE/RADIOTRACER AND DOSE: Three-phase radionuclide scan of the hips. 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 There is slightly increased vascular flow in the trochanteric area of the left hip on the vascular phase. There is increased radiotracer uptake in the trochanteric area of the left hip on the soft tissue phase. On the skeletal phase there is increased uptake in the trochanteric area and subtrochanteric area of the left femur. IMPRESSION: Increased uptake in the left hip trochanteric and subtrochanteric areas This may indicate loosening. The study is performed with 22 mCi of technetium 99 M radiolabeled MDP. <Electronically signed by Skip De Leon > 06/18/20 [id number]
== END ==
LOC: M RAD 10:54
PROVIDERS: ATTEND Orthopaedic Surgery
DX: M25.552 Pain in left hip (principal)
CPT/HCPCS: 78315; A9503

== ENCOUNTER → 2020-07-09 | Outpatient (CLI) | payer OTHER ==
--- NOTE | 2020-07-09 16:43 | REP ---
INDICATION: PRESENCE OF LT ART HIP JOINT. COMPARISON: None TECHNIQUE: Helical technique using 3 mm increments and reconstructed both sagittal and coronal planes FINDINGS: [place] artifact arises from a total left hip prosthesis. There is no CT evidence of abnormal periprosthetic lucency. There is no evidence of a gross hip joint effusion. There is no acute fracture, dislocation, or subluxation. The femoral and acetabular components of the hip prosthesis appear well seated and well approximated. IMPRESSION: Findings and limitations as described above. <Electronically signed by Mitul Carreon > 07/09/20 [id number]
== END ==
LOC: M RAD 16:04
PROVIDERS: ATTEND Orthopaedic Surgery
DX: Z96.642 Presence of left artificial hip joint (principal)

== ENCOUNTER → 2020-08-04 | Outpatient (CLI) | payer OTHER ==
--- NOTE | 2020-08-04 12:48 | REPVR ---
PROCEDURE INFORMATION: Exam: MR Lumbar Spine Without Contrast Exam date and time: 08/04/2020 9:11 AM Age: 54 years old Clinical indication: Low back pain; Additional info: Spondyls w/o myelopathy or radiculopathy TECHNIQUE: Imaging protocol: Multiplanar magnetic resonance images of the lumbar spine without intravenous contrast. COMPARISON: No relevant prior studies available. FINDINGS: Vertebrae: The lumbar vertebral bodies are normal in height,signal intensity and alignment.No acute fracture or dislocation is seen. Spinal epidural space: There is no evidence of epidural masses or hemorrhage. Spinal cord: The conus medullaris is normal. The cauda equina nerve roots demonstrate no crowding or displacement. T12-L1:Markedly reduced in height and T2 signal indicating degeneration.There is a mild diffuse posterior bulge causing mild effacement of the thecal sac.The spinal canal and neural foramina are patent and without significant stenosis. L1-L2: There is no significant degenerative disc herniation.The spinal canal and neural foramina are patent and without significant stenosis. L2-L3: There is no significant degenerative disc herniation.The spinal canal and neural foramina are patent and without significant stenosis. L3-L4: There is a mild diffuse posterior bulge causing mild effacement of the thecal sac. Small left foraminal protrusion with annular tear, abutting the left L3 nerve root. Series 6, image 13.The facet joints demonstrate mild degenerative hypertrophy and sclerosis.There is no evidence of spinal canal narrowing.There is mild left foraminal stenosis. L4-L5: Mildly reduced in height and T2 signal indicating degeneration.There is a mild diffuse posterior bulge causing mild effacement of the thecal sac.The facet joints demonstrate mild degenerative hypertrophy and sclerosis.There is no evidence of spinal canal narrowing.There is mild bilateral foraminal stenosis. L5-S1: There is no significant degenerative disc herniation.The spinal canal and neural foramina are patent and without significant stenosis. Soft tissues: The prevertebral soft tissues appear normal. IMPRESSION: MRI of the lumbar spine reveals multilevel degenerative spondylitic changes and degenerative disc disease as described above. Electronically signed by: Miguel A Reyes On 08/04/2020 12:47:44 PM
== END ==
LOC: M PLARAD 08:01
PROVIDERS: ATTEND Physical Medicine & Rehabilitation
DX: M43.06 Spondylolysis, lumbar region (principal); M51.36 Other intervertebral disc degeneration, lumbar region

== ENCOUNTER → 2020-08-04 | Outpatient (REF) | payer OTHER ==
[2020-08-04 10:18] LABS: BASO # 0.1 10^3/uL (0.0-0.2); BASO % 0.9 % (0.0-1.0); EOS # 0.1 10^3/uL (0.0-0.5); EOS % 1.7 % (0.0-3.0); HEMOGLOBIN 14.6 g/dl (13.5-17.5); LYMPH # 1.4 10^3/uL (1.5-5.0); LYMPH % 18.3 % (24.0-44.0); MEAN CORPUSCULAR HGB CONC 33.2 g/dl (32.0-36.5); MEAN CORPUSCULAR VOLUME 99.5 fl (80.0-96.0); MONO # 0.7 10^3/uL (0.0-0.8); MONO % 9.5 % (2.0-8.0); NEUTROPHILS # 5.1 10^3/uL (1.5-8.5); NEUTROPHILS % 69.1 % (36.0-66.0); PLATELET COUNT, AUTOMATED 264 10^3/uL (150-450); RED BLOOD COUNT 4.42 10^6/uL (4.30-6.10); WHITE BLOOD COUNT 7.4 10^3/uL (4.0-10.0)
[2020-08-04 11:11] LABS: ERYTHROCYTE SEDIMENTATION RATE 30 mm/hr (0-20)
== END ==
LOC: M PLALAB 09:48
PROVIDERS: ATTEND Internal Medicine
DX: M06.09 Rheumatoid arthritis without rheumatoid factor, multiple sites (principal)

== ENCOUNTER → 2020-09-02 | Outpatient (REF) | payer OTHER ==
[2020-09-02 13:51] LABS: HEMOGLOBIN A1c 5.8 %
[2020-09-02 14:02] LABS: BLOOD UREA NITROGEN 17 MG/DL (7-18); CARBON DIOXIDE LEVEL 27 MEQ/L (21-32); CHLORIDE LEVEL 105 MEQ/L (98-107); CHOLESTEROL LEVEL 248 MG/DL (<200); CHOLESTEROL RISK RATIO 5.767 (<5); CREATININE FOR GFR 0.94 MG/DL (0.70-1.30); GLOMERULAR FILTRATION RATE > 60.0 (>56); GLUCOSE, FASTING 112 MG/DL (70-100); HDL CHOLESTEROL 43 MG/DL (>40); LDL CHOLESTEROL 162 MG/DL (<100); NON-HDL-C 205 MG/DL; POTASSIUM SERUM 3.9 MEQ/L (3.5-5.1); SODIUM LEVEL 138 MEQ/L (136-145); TRIGLYCERIDES LEVEL 217 MG/DL (<150)
== END ==
LOC: M PLALAB 12:02
PROVIDERS: ATTEND Family Medicine
DX: E11.9 Type 2 diabetes mellitus without complications (principal); E78.2 Mixed hyperlipidemia; I10 Essential (primary) hypertension

== ENCOUNTER → 2020-09-09 | Outpatient (REF) | payer OTHER ==
[2020-09-09 18:05] LABS: BASO # 0.1 10^3/uL (0.0-0.2); BASO % 0.9 % (0.0-1.0); EOS # 0.1 10^3/uL (0.0-0.5); EOS % 1.5 % (0.0-3.0); HEMATOCRIT 47.1 % (42.0-52.0); HEMOGLOBIN 15.4 g/dl (13.5-17.5); LYMPH # 2.3 10^3/uL (1.5-5.0); LYMPH % 29.2 % (24.0-44.0); MEAN CORPUSCULAR HEMOGLOBIN 31.4 pg (27.0-33.0); MEAN CORPUSCULAR HGB CONC 32.7 g/dl (32.0-36.5); MEAN CORPUSCULAR VOLUME 95.9 fl (80.0-96.0); MONO # 0.6 10^3/uL (0.0-0.8); MONO % 7.8 % (2.0-8.0); NEUTROPHILS # 4.7 10^3/uL (1.5-8.5); PLATELET COUNT, AUTOMATED 212 10^3/uL (150-450); RED BLOOD COUNT 4.91 10^6/uL (4.30-6.10); WHITE BLOOD COUNT 7.8 10^3/uL (4.0-10.0)
[2020-09-09 18:06] LABS: ALBUMIN 3.9 GM/DL (3.2-5.2); ALT/SGPT 65 U/L (12-78); BILIRUBIN,TOTAL 0.4 MG/DL (0.2-1.0); BLOOD UREA NITROGEN 11 MG/DL (7-18); CARBON DIOXIDE LEVEL 28 MEQ/L (21-32); CHLORIDE LEVEL 105 MEQ/L (98-107); CREATININE FOR GFR 0.82 MG/DL (0.70-1.30); GLOMERULAR FILTRATION RATE > 60.0 (>56); GLUCOSE, FASTING 90 MG/DL (70-100); POTASSIUM SERUM 4.2 MEQ/L (3.5-5.1); SODIUM LEVEL 136 MEQ/L (136-145); TOTAL PROTEIN 7.4 GM/DL (6.4-8.2)
[2020-09-09 19:19] LABS: ERYTHROCYTE SEDIMENTATION RATE 8 mm/hr (0-20)
== END ==
LOC: M SFHCRHEU 12:40
PROVIDERS: ATTEND Internal Medicine Rheumatology
DX: M06.09 Rheumatoid arthritis without rheumatoid factor, multiple sites (principal); Z79.899 Other long term (current) drug therapy

== ENCOUNTER → 2021-01-12 | Outpatient (CLI) | payer OTHER ==
[2021-01-12 10:52] LABS: PLATELET COUNT, AUTOMATED 223 10^3/uL (150-450)
[2021-01-12 11:04] LABS: INR 0.89; PROTHROMBIN TIME 12.5 SECONDS (12.7-14.5)
[2021-01-12 11:05] LABS: PARTIAL THROMBOPLASTIN TIME 31.1 SECONDS (25.9-37.0)
== END ==
LOC: M PLALAB 08:12
PROVIDERS: ATTEND Physical Medicine & Rehabilitation
DX: M48.061 Spinal stenosis, lumbar region without neurogenic claudication (principal)

== ENCOUNTER → 2021-01-12 | Outpatient (CLI) | payer OTHER ==
[2021-01-12 11:12] LABS: BLOOD UREA NITROGEN 16 MG/DL (7-18); CALCIUM LEVEL 9.2 MG/DL (8.5-10.1); CARBON DIOXIDE LEVEL 26 MEQ/L (21-32); CHLORIDE LEVEL 105 MEQ/L (98-107); CREATININE FOR GFR 1.13 MG/DL (0.70-1.30); GLOMERULAR FILTRATION RATE > 60.0 (>56); GLUCOSE, FASTING 142 MG/DL (70-100); POTASSIUM SERUM 3.5 MEQ/L (3.5-5.1); SODIUM LEVEL 138 MEQ/L (136-145)
== END ==
LOC: M PLALAB 08:15
PROVIDERS: ATTEND Family Medicine
DX: I10 Essential (primary) hypertension (principal)

== ENCOUNTER → 2021-02-15 | Outpatient (CLI) | payer OTHER ==
[2021-02-15 10:28] LABS: BASO # 0.1 10^3/uL (0.0-0.2); BASO % 0.7 % (0.0-1.0); EOS # 0.3 10^3/uL (0.0-0.5); EOS % 2.9 % (0.0-3.0); HEMATOCRIT 47.3 % (42.0-52.0); HEMOGLOBIN 15.7 g/dl (13.5-17.5); LYMPH # 1.7 10^3/uL (1.5-5.0); LYMPH % 18.3 % (24.0-44.0); MEAN CORPUSCULAR HGB CONC 33.2 g/dl (32.0-36.5); MEAN CORPUSCULAR VOLUME 99.4 fl (80.0-96.0); MONO # 0.8 10^3/uL (0.0-0.8); MONO % 8.8 % (2.0-8.0); NEUTROPHILS # 6.2 10^3/uL (1.5-8.5); NEUTROPHILS % 68.4 % (36.0-66.0); PLATELET COUNT, AUTOMATED 226 10^3/uL (150-450); RED BLOOD COUNT 4.76 10^6/uL (4.30-6.10)
[2021-02-15 10:48] LABS: ALBUMIN 3.6 GM/DL (3.2-5.2); ALT/SGPT 43 U/L (12-78); BILIRUBIN,TOTAL 0.5 MG/DL (0.2-1.0); BLOOD UREA NITROGEN 16 MG/DL (7-18); C REACTIVE PROTEIN QUANTITATIV 0.67 MG/DL (0.00-0.30); CALCIUM LEVEL 9.5 MG/DL (8.5-10.1); CARBON DIOXIDE LEVEL 30 MEQ/L (21-32); CHLORIDE LEVEL 105 MEQ/L (98-107); CREATININE FOR GFR 1.01 MG/DL (0.70-1.30); ERYTHROCYTE SEDIMENTATION RATE 18 mm/hr (0-20); GLOMERULAR FILTRATION RATE > 60.0 (>56); GLUCOSE, FASTING 140 MG/DL (70-100); SODIUM LEVEL 140 MEQ/L (136-145); TOTAL PROTEIN 6.9 GM/DL (6.4-8.2)
== END ==
LOC: M PLALAB 08:17
PROVIDERS: ATTEND Internal Medicine Rheumatology
DX: M06.09 Rheumatoid arthritis without rheumatoid factor, multiple sites (principal)

== ENCOUNTER → 2021-04-01 | Outpatient (CLI) | payer OTHER ==
[~2021-04-01] MED LIST changes: +LOSA25TA13 PO; -LOSA25TA14 PO
[2021-04-01 10:45] LABS: BASO # 0.1 10^3/uL (0.0-0.2); EOS # 0.2 10^3/uL (0.0-0.5); EOS % 2.7 % (0.0-3.0); HEMATOCRIT 45.1 % (42.0-52.0); HEMOGLOBIN 15.3 g/dl (13.5-17.5); LYMPH # 1.7 10^3/uL (1.5-5.0); LYMPH % 28.6 % (24.0-44.0); MEAN CORPUSCULAR HEMOGLOBIN 32.6 pg (27.0-33.0); MEAN CORPUSCULAR HGB CONC 33.9 g/dl (32.0-36.5); MONO # 0.8 10^3/uL (0.0-0.8); MONO % 13.4 % (2.0-8.0); NEUTROPHILS # 3.2 10^3/uL (1.5-8.5); PLATELET COUNT, AUTOMATED 218 10^3/uL (150-450)
[2021-04-01 11:17] LABS: ALBUMIN 3.7 GM/DL (3.2-5.2); ALT/SGPT 92 U/L (12-78); BILIRUBIN,TOTAL 0.3 MG/DL (0.2-1.0); BLOOD UREA NITROGEN 19 MG/DL (7-18); CALCIUM LEVEL 9.2 MG/DL (8.5-10.1); CARBON DIOXIDE LEVEL 30 MEQ/L (21-32); CHLORIDE LEVEL 105 MEQ/L (98-107); CREATININE FOR GFR 1.07 MG/DL (0.70-1.30); GLOMERULAR FILTRATION RATE > 60.0 (>56); GLUCOSE, FASTING 130 MG/DL (70-100); POTASSIUM SERUM 3.7 MEQ/L (3.5-5.1); SODIUM LEVEL 142 MEQ/L (136-145); TOTAL PROTEIN 6.9 GM/DL (6.4-8.2); URIC ACID 6.2 MG/DL (3.5-7.2)
[2021-04-01 11:20] LABS: ERYTHROCYTE SEDIMENTATION RATE 10 mm/hr (0-20)
== END ==
LOC: M PLALAB 08:09
PROVIDERS: ATTEND Internal Medicine Rheumatology
DX: M06.09 Rheumatoid arthritis without rheumatoid factor, multiple sites (principal)

== ENCOUNTER → 2021-04-08 | Outpatient (CLI) | payer OTHER ==
[2021-04-08 11:21] LABS: ALT/SGPT 124 U/L (12-78); BILIRUBIN,TOTAL 0.7 MG/DL (0.2-1.0); BLOOD UREA NITROGEN 16 MG/DL (7-18); CALCIUM LEVEL 9.2 MG/DL (8.5-10.1); CARBON DIOXIDE LEVEL 28 MEQ/L (21-32); CHLORIDE LEVEL 103 MEQ/L (98-107); CREATININE FOR GFR 1.05 MG/DL (0.70-1.30); GLOMERULAR FILTRATION RATE > 60.0 (>56); GLUCOSE, FASTING 125 MG/DL (70-100); POTASSIUM SERUM 3.6 MEQ/L (3.5-5.1); SODIUM LEVEL 140 MEQ/L (136-145); TOTAL PROTEIN 7.2 GM/DL (6.4-8.2)
== END ==
LOC: M PLALAB 07:58
PROVIDERS: ATTEND Internal Medicine Rheumatology
DX: M06.09 Rheumatoid arthritis without rheumatoid factor, multiple sites (principal)

== ENCOUNTER → 2021-04-22 | Outpatient (CLI) | payer OTHER ==
[2021-04-22 11:34] LABS: ALBUMIN 3.7 GM/DL (3.2-5.2); ALT/SGPT 83 U/L (12-78); BILIRUBIN,TOTAL 0.6 MG/DL (0.2-1.0); BLOOD UREA NITROGEN 19 MG/DL (7-18); CALCIUM LEVEL 9.5 MG/DL (8.5-10.1); CARBON DIOXIDE LEVEL 26 MEQ/L (21-32); CHLORIDE LEVEL 105 MEQ/L (98-107); CREATININE FOR GFR 0.93 MG/DL (0.70-1.30); GLOMERULAR FILTRATION RATE > 60.0 (>56); GLUCOSE, FASTING 125 MG/DL (70-100); POTASSIUM SERUM 3.8 MEQ/L (3.5-5.1); SODIUM LEVEL 142 MEQ/L (136-145); TOTAL PROTEIN 6.6 GM/DL (6.4-8.2)
== END ==
LOC: M PLALAB 08:08
PROVIDERS: ATTEND Internal Medicine Rheumatology
DX: M06.09 Rheumatoid arthritis without rheumatoid factor, multiple sites (principal)

== ENCOUNTER → 2021-05-13 | Outpatient (CLI) | payer OTHER ==
[2021-05-13 14:25] LABS: CHOLESTEROL RISK RATIO 6.666 (<5)
[2021-05-13 15:12] LABS: MALB URINE SIEMENS 7.2 MG/L; MAU/CREAT RATIO 5.4 MCG/MG (0.0-30.0)
[2021-05-13 15:23] LABS: HEMOGLOBIN A1c 6.1 %
== END ==
LOC: M PLALAB 09:05
PROVIDERS: ATTEND Family Medicine
DX: E11.9 Type 2 diabetes mellitus without complications (principal); E78.2 Mixed hyperlipidemia

== ENCOUNTER → 2021-08-02 | Outpatient (CLI) | payer OTHER ==
[2021-08-02 15:37] LABS: BASO % 0.7 % (0.0-1.0); EOS # 0.1 10^3/uL (0.0-0.5); HEMOGLOBIN 15.9 g/dl (13.5-17.5); LYMPH % 36.6 % (24.0-44.0); MEAN CORPUSCULAR HEMOGLOBIN 33.1 pg (27.0-33.0); MEAN CORPUSCULAR HGB CONC 33.8 g/dl (32.0-36.5); MEAN CORPUSCULAR VOLUME 97.7 fl (80.0-96.0); MONO # 0.6 10^3/uL (0.0-0.8); MONO % 10.6 % (2.0-8.0); NEUTROPHILS # 2.8 10^3/uL (1.5-8.5); NEUTROPHILS % 49.7 % (36.0-66.0); PLATELET COUNT, AUTOMATED 217 10^3/uL (150-450); RED BLOOD COUNT 4.81 10^6/uL (4.30-6.10); WHITE BLOOD COUNT 5.6 10^3/uL (4.0-10.0)
[2021-08-02 15:52] LABS: ALT/SGPT 64 U/L (12-78); BILIRUBIN,TOTAL 0.4 MG/DL (0.2-1.0); BLOOD UREA NITROGEN 24 MG/DL (7-18); CALCIUM LEVEL 9.7 MG/DL (8.5-10.1); CARBON DIOXIDE LEVEL 27 MEQ/L (21-32); CHLORIDE LEVEL 106 MEQ/L (98-107); CREATININE FOR GFR 1.03 MG/DL (0.70-1.30); GLOMERULAR FILTRATION RATE > 60.0 (>56); GLUCOSE, FASTING 122 MG/DL (70-100); POTASSIUM SERUM 4.1 MEQ/L (3.5-5.1); SODIUM LEVEL 138 MEQ/L (136-145); TOTAL PROTEIN 7.2 GM/DL (6.4-8.2); URIC ACID 6.9 MG/DL (3.5-7.2)
[2021-08-02 15:59] LABS: ERYTHROCYTE SEDIMENTATION RATE 13 mm/hr (0-20)
== END ==
LOC: M PLALAB 14:19
PROVIDERS: ATTEND Internal Medicine Rheumatology
DX: M06.09 Rheumatoid arthritis without rheumatoid factor, multiple sites (principal); Z79.899 Other long term (current) drug therapy; M89.49 Other hypertrophic osteoarthropathy, multiple sites; M1A.0710 Idiopathic chronic gout, right ankle and foot, without tophus (tophi)

== ENCOUNTER → 2021-08-23 | Outpatient (CLI) | payer OTHER ==
[2021-08-23 18:21] LABS: PLATELET COUNT, AUTOMATED 223 10^3/uL (150-450)
[2021-08-23 18:33] LABS: INR 0.93; PROTHROMBIN TIME 12.9 SECONDS (12.7-14.5)
[2021-08-23 18:34] LABS: PARTIAL THROMBOPLASTIN TIME 28.6 SECONDS (25.9-37.0)
== END ==
LOC: M PLALAB 15:32
PROVIDERS: ATTEND Physical Medicine & Rehabilitation
DX: M48.061 Spinal stenosis, lumbar region without neurogenic claudication (principal)

== ENCOUNTER → 2021-11-30 | Outpatient (CLI) | payer OTHER ==
[2021-11-30 10:36] LABS: BASO % 0.2 % (0.0-1.0); EOS % 0.2 % (0.0-3.0); HEMATOCRIT 47.2 % (42.0-52.0); HEMOGLOBIN 15.8 g/dl (13.5-17.5); LYMPH # 1.2 10^3/uL (1.5-5.0); LYMPH % 8.8 % (24.0-44.0); MEAN CORPUSCULAR HEMOGLOBIN 33.2 pg (27.0-33.0); MEAN CORPUSCULAR HGB CONC 33.5 g/dl (32.0-36.5); MEAN CORPUSCULAR VOLUME 99.2 fl (80.0-96.0); MONO % 7.7 % (2.0-8.0); NEUTROPHILS # 10.8 10^3/uL (1.5-8.5); NEUTROPHILS % 82.6 % (36.0-66.0); PLATELET COUNT, AUTOMATED 229 10^3/uL (150-450); RED BLOOD COUNT 4.76 10^6/uL (4.30-6.10); WHITE BLOOD COUNT 13.1 10^3/uL (4.0-10.0)
[2021-11-30 10:55] LABS: ERYTHROCYTE SEDIMENTATION RATE 6 mm/hr (0-20)
[2021-11-30 11:16] LABS: ALBUMIN 3.8 GM/DL (3.2-5.2); ALT/SGPT 36 U/L (12-78); BILIRUBIN,TOTAL 0.6 MG/DL (0.2-1.0); BLOOD UREA NITROGEN 23 MG/DL (7-18); CALCIUM LEVEL 9.2 MG/DL (8.5-10.1); CARBON DIOXIDE LEVEL 27 MEQ/L (21-32); CHLORIDE LEVEL 106 MEQ/L (98-107); CREATININE FOR GFR 0.91 MG/DL (0.70-1.30); GLOMERULAR FILTRATION RATE > 60.0 (>56); GLUCOSE, FASTING 119 MG/DL (70-100); POTASSIUM SERUM 3.9 MEQ/L (3.5-5.1); SODIUM LEVEL 137 MEQ/L (136-145); TOTAL PROTEIN 7.1 GM/DL (6.4-8.2); URIC ACID 6.8 MG/DL (3.5-7.2)
== END ==
LOC: M PLALAB 07:52
PROVIDERS: ATTEND Internal Medicine Rheumatology
DX: M06.09 Rheumatoid arthritis without rheumatoid factor, multiple sites (principal); Z79.899 Other long term (current) drug therapy; M89.49 Other hypertrophic osteoarthropathy, multiple sites

== ENCOUNTER → 2021-11-30 | Outpatient (CLI) | payer OTHER ==
[2021-11-30 11:02] LABS: HEMOGLOBIN A1c 6.1 %
== END ==
LOC: M PLALAB 07:48
PROVIDERS: ATTEND Physician Assistant
DX: E11.9 Type 2 diabetes mellitus without complications (principal)

== ENCOUNTER → 2021-11-30 | Outpatient (CLI) | payer OTHER ==
[2021-11-30 10:36] LABS: HEMATOCRIT 46.1 % (42.0-52.0); HEMOGLOBIN 15.5 g/dl (13.5-17.5); MEAN CORPUSCULAR HEMOGLOBIN 33.4 pg (27.0-33.0); MEAN CORPUSCULAR HGB CONC 33.6 g/dl (32.0-36.5); MEAN CORPUSCULAR VOLUME 99.4 fl (80.0-96.0); PLATELET COUNT, AUTOMATED 234 10^3/uL (150-450); RED BLOOD COUNT 4.64 10^6/uL (4.30-6.10); WHITE BLOOD COUNT 12.7 10^3/uL (4.0-10.0)
[2021-11-30 11:16] LABS: ALBUMIN 3.9 GM/DL (3.2-5.2); BILIRUBIN,DIRECT 0.2 MG/DL (0.0-0.2); BILIRUBIN,TOTAL 0.6 MG/DL (0.2-1.0); CHOLESTEROL RISK RATIO 2.863 (<5); TOTAL PROTEIN 7.1 GM/DL (6.4-8.2)
== END ==
LOC: M PLALAB 07:51
PROVIDERS: ATTEND Internal Medicine Cardiovascular Disease
DX: E78.01 Familial hypercholesterolemia (principal)

== ENCOUNTER → 2022-01-25 | Outpatient (CLI) | payer OTHER ==
[2022-01-25 10:20] LABS: BASO # 0.1 10^3/uL (0.0-0.2); BASO % 0.8 % (0.0-1.0); EOS # 0.2 10^3/uL (0.0-0.5); EOS % 2.5 % (0.0-3.0); HEMATOCRIT 48.1 % (42.0-52.0); HEMOGLOBIN 15.8 g/dl (13.5-17.5); LYMPH % 14.3 % (24.0-44.0); MEAN CORPUSCULAR HEMOGLOBIN 32.8 pg (27.0-33.0); MEAN CORPUSCULAR HGB CONC 32.8 g/dl (32.0-36.5); MONO # 0.9 10^3/uL (0.0-0.8); MONO % 12.1 % (2.0-8.0); NEUTROPHILS # 5.1 10^3/uL (1.5-8.5); PLATELET COUNT, AUTOMATED 199 10^3/uL (150-450); RED BLOOD COUNT 4.81 10^6/uL (4.30-6.10); WHITE BLOOD COUNT 7.3 10^3/uL (4.0-10.0)
[2022-01-25 11:19] LABS: ALBUMIN 3.8 G/DL (3.2-5.2); ALT/SGPT 35 U/L (7.0-40); BILIRUBIN,TOTAL 0.5 MG/DL (0.3-1.2); BLOOD UREA NITROGEN 21 MG/DL (9-23); CARBON DIOXIDE LEVEL 27 MMOL/L (20-31); CHLORIDE LEVEL 105 MMOL/L (98-107); CREATININE FOR GFR 0.92 MG/DL (0.70-1.30); GLOMERULAR FILTRATION RATE > 60.0 (>56); GLUCOSE, FASTING 110 MG/DL (60-100); POTASSIUM SERUM 3.9 MMOL/L (3.5-5.1); SODIUM LEVEL 142 MMOL/L (136-145); TOTAL PROTEIN 6.7 G/DL (5.7-8.2)
[2022-01-25 11:37] LABS: ERYTHROCYTE SEDIMENTATION RATE 19 mm/hr (0-20)
== END ==
LOC: M PLALAB 08:40
PROVIDERS: ATTEND Internal Medicine Rheumatology
DX: M06.09 Rheumatoid arthritis without rheumatoid factor, multiple sites (principal)

== ENCOUNTER → 2022-03-21 | Outpatient (CLI) | payer OTHER ==
[2022-03-21 10:50] LABS: BASO # 0.1 10^3/uL (0.0-0.2); EOS # 0.2 10^3/uL (0.0-0.5); EOS % 2.6 % (0.0-3.0); HEMATOCRIT 49.1 % (42.0-52.0); HEMOGLOBIN 16.5 g/dl (13.5-17.5); LYMPH # 1.2 10^3/uL (1.5-5.0); LYMPH % 14.4 % (24.0-44.0); MEAN CORPUSCULAR HEMOGLOBIN 32.4 pg (27.0-33.0); MEAN CORPUSCULAR HGB CONC 33.6 g/dl (32.0-36.5); MEAN CORPUSCULAR VOLUME 96.5 fl (80.0-96.0); MONO # 0.8 10^3/uL (0.0-0.8); MONO % 10.6 % (2.0-8.0); NEUTROPHILS # 5.7 10^3/uL (1.5-8.5); NEUTROPHILS % 71.1 % (36.0-66.0); PLATELET COUNT, AUTOMATED 179 10^3/uL (150-450); RED BLOOD COUNT 5.09 10^6/uL (4.30-6.10)
[2022-03-21 11:29] LABS: ALBUMIN 3.9 G/DL (3.2-5.2); ALKALINE PHOSPHATASE 96 U/L (46-116); ALT/SGPT 92 U/L (7.0-40); AST/SGOT 207 U/L (<34); BILIRUBIN,TOTAL 0.8 MG/DL (0.3-1.2); BLOOD UREA NITROGEN 17 MG/DL (9-23); CALCIUM LEVEL 9.4 MG/DL (8.5-10.1); CARBON DIOXIDE LEVEL 27 MMOL/L (20-31); CHLORIDE LEVEL 102 MMOL/L (98-107); CREATININE FOR GFR 0.87 MG/DL (0.70-1.30); GLOMERULAR FILTRATION RATE > 60.0 (>56); GLUCOSE, FASTING 175 MG/DL (60-100); POTASSIUM SERUM 3.9 MMOL/L (3.5-5.1); SODIUM LEVEL 139 MMOL/L (136-145); TOTAL PROTEIN 6.9 G/DL (5.7-8.2)
[2022-03-21 11:37] LABS: ERYTHROCYTE SEDIMENTATION RATE 31 mm/hr (0-20)
[2022-03-21 11:46] LABS: C REACTIVE PROTEIN QUANTITATIV < 0.40 MG/DL (<1.0)
== END ==
LOC: M PLALAB 08:10
PROVIDERS: ATTEND Internal Medicine Rheumatology
DX: M06.09 Rheumatoid arthritis without rheumatoid factor, multiple sites (principal); M10.09 Idiopathic gout, multiple sites; Z79.899 Other long term (current) drug therapy; M89.49 Other hypertrophic osteoarthropathy, multiple sites

== ENCOUNTER → 2022-03-28 | Outpatient (REF) | payer OTHER ==
[2022-03-28 14:30] LABS: BILIRUBIN,DIRECT 0.2 MG/DL (<0.4)
[2022-03-28 18:02] LABS: ALBUMIN 3.7 G/DL (3.2-5.2); BILIRUBIN,TOTAL 0.8 MG/DL (0.3-1.2); TOTAL PROTEIN 6.9 G/DL (5.7-8.2)
== END ==
LOC: M SFHCRHEU 10:28
PROVIDERS: ATTEND Internal Medicine Rheumatology
DX: M06.09 Rheumatoid arthritis without rheumatoid factor, multiple sites (principal); M89.49 Other hypertrophic osteoarthropathy, multiple sites; M10.09 Idiopathic gout, multiple sites; Z79.899 Other long term (current) drug therapy

== ENCOUNTER → 2022-04-28 | Outpatient (CLI) | payer OTHER ==
[2022-04-28 10:42] LABS: ALBUMIN 3.6 G/DL (3.2-5.2); BILIRUBIN,DIRECT 0.2 MG/DL (<0.4); BILIRUBIN,TOTAL 0.5 MG/DL (0.3-1.2); TOTAL PROTEIN 6.5 G/DL (5.7-8.2)
== END ==
LOC: M PLALAB 08:35
PROVIDERS: ATTEND Internal Medicine Rheumatology
DX: M06.09 Rheumatoid arthritis without rheumatoid factor, multiple sites (principal)

== ENCOUNTER → 2022-04-28 | Outpatient (CLI) | payer OTHER ==
[2022-04-28 10:23] LABS: PLATELET COUNT, AUTOMATED 139 10^3/uL (150-450)
[2022-04-28 10:36] LABS: INR 0.86; PROTHROMBIN TIME 11.9 SECONDS (12.5-14.5)
[2022-04-28 10:37] LABS: PARTIAL THROMBOPLASTIN TIME 27.5 SECONDS (24.8-34.2)
== END ==
LOC: M PLALAB 08:36
PROVIDERS: ATTEND Physical Medicine & Rehabilitation
DX: Z01.812 Encounter for preprocedural laboratory examination (principal)

== ENCOUNTER → 2022-08-16 | Outpatient (CLI) | payer OTHER ==
[2022-08-16 10:23] LABS: BASO # 0.1 10^3/uL (0.0-0.2); BASO % 1.1 % (0.0-1.0); EOS # 0.1 10^3/uL (0.0-0.5); EOS % 1.9 % (0.0-3.0); HEMATOCRIT 48.3 % (42.0-52.0); HEMOGLOBIN 15.6 g/dl (13.5-17.5); LYMPH # 1.3 10^3/uL (1.5-5.0); LYMPH % 20.1 % (24.0-44.0); MEAN CORPUSCULAR HEMOGLOBIN 30.8 pg (27.0-33.0); MEAN CORPUSCULAR HGB CONC 32.3 g/dl (32.0-36.5); MEAN CORPUSCULAR VOLUME 95.5 fl (80.0-96.0); MONO # 0.8 10^3/uL (0.0-0.8); MONO % 12.2 % (2.0-8.0); NEUTROPHILS % 63.6 % (36.0-66.0); PLATELET COUNT, AUTOMATED 187 10^3/uL (150-450); RED BLOOD COUNT 5.06 10^6/uL (4.30-6.10); WHITE BLOOD COUNT 6.3 10^3/uL (4.0-10.0)
[2022-08-16 10:25] LABS: C REACTIVE PROTEIN QUANTITATIV < 0.40 MG/DL (<1.0)
[2022-08-16 10:27] LABS: ALBUMIN 3.7 G/DL (3.2-5.2); ALKALINE PHOSPHATASE 91 U/L (46-116); ALT/SGPT 31 U/L (7.0-40); AST/SGOT 14 U/L (<34); BILIRUBIN,TOTAL 0.5 MG/DL (0.3-1.2); BLOOD UREA NITROGEN 15 MG/DL (9-23); CALCIUM LEVEL 9.3 MG/DL (8.5-10.1); CARBON DIOXIDE LEVEL 29 MMOL/L (20-31); CHLORIDE LEVEL 103 MMOL/L (98-107); GLOMERULAR FILTRATION RATE > 60.0 (>56); GLUCOSE, FASTING 130 MG/DL (60-100); POTASSIUM SERUM 3.7 MMOL/L (3.5-5.1); SODIUM LEVEL 138 MMOL/L (136-145); TOTAL PROTEIN 6.5 G/DL (5.7-8.2)
[2022-08-16 10:31] LABS: ERYTHROCYTE SEDIMENTATION RATE 28 mm/hr (0-20)
== END ==
LOC: M PLALAB 08:04
PROVIDERS: ATTEND Internal Medicine Rheumatology
DX: M06.09 Rheumatoid arthritis without rheumatoid factor, multiple sites (principal); M15.9 Polyosteoarthritis, unspecified; M10.09 Idiopathic gout, multiple sites; Z79.899 Other long term (current) drug therapy; R79.89 Other specified abnormal findings of blood chemistry; M89.49 Other hypertrophic osteoarthropathy, multiple sites

== ENCOUNTER → 2022-09-15 | Outpatient (CLI) | payer OTHER | LOC: M RAD 14:00 | PROVIDERS: ATTEND Internal Medicine Rheumatology | DX: M06.09 Rheumatoid arthritis without rheumatoid factor, multiple sites (principal) ==

== ENCOUNTER → 2022-10-10 | Outpatient (CLI) | payer OTHER ==
[2022-10-10 10:44] LABS: HEMATOCRIT 46.7 % (42.0-52.0); HEMOGLOBIN 15.4 g/dl (13.5-17.5); MEAN CORPUSCULAR HEMOGLOBIN 31.1 pg (27.0-33.0); MEAN CORPUSCULAR VOLUME 94.3 fl (80.0-96.0); PLATELET COUNT, AUTOMATED 184 10^3/uL (150-450); RED BLOOD COUNT 4.95 10^6/uL (4.30-6.10)
[2022-10-10 11:01] LABS: ERYTHROCYTE SEDIMENTATION RATE 34 mm/hr (0-20)
[2022-10-10 11:17] LABS: ALBUMIN 3.7 G/DL (3.2-5.2); ALKALINE PHOSPHATASE 101 U/L (46-116); ALT/SGPT 24 U/L (7.0-40); AST/SGOT 19 U/L (<34); BILIRUBIN,TOTAL 0.7 MG/DL (0.3-1.2); BLOOD UREA NITROGEN 16 MG/DL (9-23); C REACTIVE PROTEIN QUANTITATIV < 0.40 MG/DL (<1.0); CALCIUM LEVEL 9.2 MG/DL (8.5-10.1); CARBON DIOXIDE LEVEL 26 MMOL/L (20-31); CHLORIDE LEVEL 105 MMOL/L (98-107); CREATININE FOR GFR 0.87 MG/DL (0.70-1.30); GLOMERULAR FILTRATION RATE > 60.0 (>56); GLUCOSE, FASTING 124 MG/DL (60-100); POTASSIUM SERUM 3.7 MMOL/L (3.5-5.1); SODIUM LEVEL 142 MMOL/L (136-145); TOTAL PROTEIN 6.5 G/DL (5.7-8.2)
== END ==
LOC: M PLALAB 08:00
PROVIDERS: ATTEND Internal Medicine Rheumatology
DX: M06.09 Rheumatoid arthritis without rheumatoid factor, multiple sites (principal); M89.49 Other hypertrophic osteoarthropathy, multiple sites; M10.09 Idiopathic gout, multiple sites; R79.89 Other specified abnormal findings of blood chemistry; Z79.899 Other long term (current) drug therapy

== ENCOUNTER → 2022-11-10 | Outpatient (CLI) | payer OTHER | LOC: M PLARAD 09:05 | PROVIDERS: ATTEND Physical Medicine & Rehabilitation | DX: M51.16 Intervertebral disc disorders with radiculopathy, lumbar region (principal); M47.896 Other spondylosis, lumbar region ==

== ENCOUNTER → 2022-11-15 | Outpatient (CLI) | payer OTHER ==
[2022-11-15 10:40] LABS: PLATELET COUNT, AUTOMATED 174 10^3/uL (150-450)
[2022-11-15 10:48] LABS: INR 0.96; PROTHROMBIN TIME 12.5 SECONDS (12.5-14.5)
[2022-11-15 10:49] LABS: PARTIAL THROMBOPLASTIN TIME 28.4 SECONDS (24.8-34.2)
== END ==
LOC: M PLALAB 08:22
PROVIDERS: ATTEND Physical Medicine & Rehabilitation
DX: Z01.818 Encounter for other preprocedural examination (principal)

== ENCOUNTER → 2023-01-10 | Outpatient (CLI) | payer OTHER ==
[2023-01-10 18:35] LABS: BASO # 0.1 10^3/uL (0.0-0.2); BASO % 0.8 % (0.0-1.0); EOS # 0.1 10^3/uL (0.0-0.5); EOS % 1.5 % (0.0-3.0); HEMATOCRIT 47.2 % (42.0-52.0); HEMOGLOBIN 15.6 g/dl (13.5-17.5); LYMPH # 1.7 10^3/uL (1.5-5.0); LYMPH % 23.2 % (24.0-44.0); MEAN CORPUSCULAR HEMOGLOBIN 31.6 pg (27.0-33.0); MEAN CORPUSCULAR HGB CONC 33.1 g/dl (32.0-36.5); MEAN CORPUSCULAR VOLUME 95.7 fl (80.0-96.0); MONO # 0.9 10^3/uL (0.0-0.8); MONO % 12.4 % (2.0-8.0); NEUTROPHILS # 4.4 10^3/uL (1.5-8.5); NEUTROPHILS % 61.8 % (36.0-66.0); PLATELET COUNT, AUTOMATED 207 10^3/uL (150-450); RED BLOOD COUNT 4.93 10^6/uL (4.30-6.10); WHITE BLOOD COUNT 7.1 10^3/uL (4.0-10.0)
[2023-01-10 18:54] LABS: C REACTIVE PROTEIN QUANTITATIV < 0.40 MG/DL (<1.0); ERYTHROCYTE SEDIMENTATION RATE 27 mm/hr (0-20)
[2023-01-10 18:56] LABS: ALBUMIN 3.8 G/DL (3.2-5.2); ALKALINE PHOSPHATASE 88 U/L (46-116); ALT/SGPT 37 U/L (7.0-40); AST/SGOT 24 U/L (<34); BILIRUBIN,TOTAL 0.6 MG/DL (0.3-1.2); BLOOD UREA NITROGEN 16 MG/DL (9-23); CALCIUM LEVEL 8.9 MG/DL (8.5-10.1); CARBON DIOXIDE LEVEL 27 MMOL/L (20-31); CHLORIDE LEVEL 103 MMOL/L (98-107); CREATININE FOR GFR 0.87 MG/DL (0.70-1.30); GLOMERULAR FILTRATION RATE > 60.0 (>56); GLUCOSE, FASTING 90 MG/DL (60-100); POTASSIUM SERUM 3.8 MMOL/L (3.5-5.1); SODIUM LEVEL 139 MMOL/L (136-145)
== END ==
LOC: M PLALAB 15:49
PROVIDERS: ATTEND Internal Medicine Rheumatology
DX: M06.09 Rheumatoid arthritis without rheumatoid factor, multiple sites (principal); M89.49 Other hypertrophic osteoarthropathy, multiple sites; M10.09 Idiopathic gout, multiple sites; Z79.899 Other long term (current) drug therapy; R79.89 Other specified abnormal findings of blood chemistry

== ENCOUNTER → 2023-01-19 | Outpatient (REF) | payer OTHER | LOC: M SFHCRHEU 09:50 | PROVIDERS: ATTEND Internal Medicine Rheumatology | DX: Z53.9 Procedure and treatment not carried out, unspecified reason (principal) ==

== ENCOUNTER → 2023-04-11 | Outpatient (CLI) | payer OTHER ==
[2023-04-11 11:32] LABS: BASO # 0.1 10^3/uL (0.0-0.2); BASO % 0.8 % (0.0-1.0); EOS # 0.1 10^3/uL (0.0-0.5); EOS % 1.8 % (0.0-3.0); HEMATOCRIT 47.2 % (42.0-52.0); HEMOGLOBIN 15.6 g/dl (13.5-17.5); LYMPH # 1.6 10^3/uL (1.5-5.0); LYMPH % 26.3 % (24.0-44.0); MEAN CORPUSCULAR HEMOGLOBIN 31.6 pg (27.0-33.0); MEAN CORPUSCULAR HGB CONC 33.1 g/dl (32.0-36.5); MEAN CORPUSCULAR VOLUME 95.7 fl (80.0-96.0); MONO # 0.8 10^3/uL (0.0-0.8); MONO % 12.3 % (2.0-8.0); NEUTROPHILS # 3.6 10^3/uL (1.5-8.5); NEUTROPHILS % 58.5 % (36.0-66.0); PLATELET COUNT, AUTOMATED 190 10^3/uL (150-450); RED BLOOD COUNT 4.93 10^6/uL (4.30-6.10); WHITE BLOOD COUNT 6.1 10^3/uL (4.0-10.0)
[2023-04-11 11:41] LABS: ERYTHROCYTE SEDIMENTATION RATE 19 mm/hr (0-20)
[2023-04-11 11:58] LABS: C REACTIVE PROTEIN QUANTITATIV < 0.40 MG/DL (<1.0)
[2023-04-11 12:00] LABS: ALBUMIN 3.6 G/DL (3.2-5.2); ALKALINE PHOSPHATASE 97 U/L (46-116); ALT/SGPT 29 U/L (7.0-40); AST/SGOT 19 U/L (<34); BILIRUBIN,TOTAL 0.5 MG/DL (0.3-1.2); BLOOD UREA NITROGEN 13 MG/DL (9-23); CALCIUM LEVEL 8.8 MG/DL (8.5-10.1); CARBON DIOXIDE LEVEL 30 MMOL/L (20-31); CHLORIDE LEVEL 105 MMOL/L (98-107); CREATININE FOR GFR 0.83 MG/DL (0.70-1.30); GLOMERULAR FILTRATION RATE > 60.0 (>56); GLUCOSE, FASTING 122 MG/DL (60-100); POTASSIUM SERUM 3.8 MMOL/L (3.5-5.1); SODIUM LEVEL 140 MMOL/L (136-145); TOTAL PROTEIN 6.8 G/DL (5.7-8.2)
== END ==
LOC: M PLALAB 07:22
PROVIDERS: ATTEND Internal Medicine Rheumatology
DX: M06.09 Rheumatoid arthritis without rheumatoid factor, multiple sites (principal); M89.49 Other hypertrophic osteoarthropathy, multiple sites; M10.09 Idiopathic gout, multiple sites; Z79.899 Other long term (current) drug therapy; R79.89 Other specified abnormal findings of blood chemistry

== ENCOUNTER → 2023-04-20 | Outpatient (REF) | payer OTHER | LOC: M SFHCRHEU 14:53 | PROVIDERS: ATTEND Internal Medicine Rheumatology | DX: M06.09 Rheumatoid arthritis without rheumatoid factor, multiple sites (principal); M89.49 Other hypertrophic osteoarthropathy, multiple sites; M10.09 Idiopathic gout, multiple sites; Z79.899 Other long term (current) drug therapy; R79.89 Other specified abnormal findings of blood chemistry; Z53.9 Procedure and treatment not carried out, unspecified reason ==

== ENCOUNTER → 2023-07-24 | Outpatient (CLI) | payer OTHER ==
[2023-07-24 14:01] LABS: BASO # 0.1 10^3/uL (0.0-0.2); EOS # 0.1 10^3/uL (0.0-0.5); EOS % 2.3 % (0.0-3.0); HEMATOCRIT 44.7 % (42.0-52.0); HEMOGLOBIN 14.9 g/dl (13.5-17.5); LYMPH # 1.5 10^3/uL (1.5-5.0); LYMPH % 25.2 % (24.0-44.0); MEAN CORPUSCULAR HEMOGLOBIN 31.4 pg (27.0-33.0); MEAN CORPUSCULAR HGB CONC 33.3 g/dl (32.0-36.5); MEAN CORPUSCULAR VOLUME 94.1 fl (80.0-96.0); MONO # 0.8 10^3/uL (0.0-0.8); MONO % 13.4 % (2.0-8.0); NEUTROPHILS # 3.3 10^3/uL (1.5-8.5); NEUTROPHILS % 57.8 % (36.0-66.0); PLATELET COUNT, AUTOMATED 178 10^3/uL (150-450); RED BLOOD COUNT 4.75 10^6/uL (4.30-6.10); WHITE BLOOD COUNT 5.8 10^3/uL (4.0-10.0)
[2023-07-24 14:09] LABS: ERYTHROCYTE SEDIMENTATION RATE 28 mm/hr (0-20)
[2023-07-24 14:30] LABS: C REACTIVE PROTEIN QUANTITATIV < 0.40 MG/DL (<1.0)
[2023-07-24 14:32] LABS: ALBUMIN 3.7 G/DL (3.2-5.2); ALKALINE PHOSPHATASE 97 U/L (46-116); ALT/SGPT 38 U/L (7.0-40); AST/SGOT 23 U/L (<34); BILIRUBIN,TOTAL 0.6 MG/DL (0.3-1.2); BLOOD UREA NITROGEN 18 MG/DL (9-23); CALCIUM LEVEL 9.2 MG/DL (8.5-10.1); CARBON DIOXIDE LEVEL 28 MMOL/L (20-31); CHLORIDE LEVEL 106 MMOL/L (98-107); CREATININE FOR GFR 0.83 MG/DL (0.70-1.30); GLOMERULAR FILTRATION RATE > 60.0 (>56); GLUCOSE, FASTING 114 MG/DL (60-100); SODIUM LEVEL 140 MMOL/L (136-145); TOTAL PROTEIN 6.5 G/DL (5.7-8.2)
== END ==
LOC: M PLALAB 11:41
PROVIDERS: ATTEND Internal Medicine Rheumatology
DX: M06.09 Rheumatoid arthritis without rheumatoid factor, multiple sites (principal); M89.49 Other hypertrophic osteoarthropathy, multiple sites; M10.09 Idiopathic gout, multiple sites; Z79.899 Other long term (current) drug therapy; R79.89 Other specified abnormal findings of blood chemistry

== ENCOUNTER → 2023-09-05 | Outpatient (CLI) | payer OTHER ==
[2023-09-05 10:26] LABS: PLATELET COUNT, AUTOMATED 203 10^3/uL (150-450)
[2023-09-05 10:38] LABS: INR 0.95; PARTIAL THROMBOPLASTIN TIME 27.6 SECONDS (24.8-34.2); PROTHROMBIN TIME 12.4 SECONDS (12.5-14.5)
== END ==
LOC: M PLALAB 08:12
PROVIDERS: ATTEND Physical Medicine & Rehabilitation
DX: Z01.812 Encounter for preprocedural laboratory examination (principal); M54.16 Radiculopathy, lumbar region

== ENCOUNTER → 2023-10-26 | Outpatient (REF) | payer OTHER ==
[2023-10-26 18:47] LABS: ALBUMIN 3.8 G/DL (3.2-5.2); ALKALINE PHOSPHATASE 111 U/L (46-116); ALT/SGPT 33 U/L (7.0-40); AST/SGOT 19 U/L (<34); BILIRUBIN,TOTAL 0.5 MG/DL (0.3-1.2); BLOOD UREA NITROGEN 15 MG/DL (9-23); CALCIUM LEVEL 9.1 MG/DL (8.5-10.1); CARBON DIOXIDE LEVEL 28 MMOL/L (20-31); CHLORIDE LEVEL 105 MMOL/L (98-107); CREATININE FOR GFR 0.79 MG/DL (0.70-1.30); GLOMERULAR FILTRATION RATE > 60.0 (>56); GLUCOSE, FASTING 114 MG/DL (60-100); POTASSIUM SERUM 3.7 MMOL/L (3.5-5.1); SODIUM LEVEL 140 MMOL/L (136-145); TOTAL PROTEIN 6.6 G/DL (5.7-8.2)
== END ==
LOC: M SFHCRHEU 14:24
PROVIDERS: ATTEND Internal Medicine Rheumatology
DX: M06.09 Rheumatoid arthritis without rheumatoid factor, multiple sites (principal)

== ENCOUNTER → 2024-01-28 | Outpatient (CLI) | payer OTHER ==
[~2024-01-28] MED LIST changes: +GABA-1490 PO; -GABA600T4 PO
[2024-01-28 11:25] LABS: BASO # 0.1 10^3/uL (0.0-0.2); BASO % 1.2 % (0.0-1.0); EOS # 0.2 10^3/uL (0.0-0.5); EOS % 3.2 % (0.0-3.0); HEMATOCRIT 45.1 % (42.0-52.0); HEMOGLOBIN 14.6 g/dl (13.5-17.5); LYMPH # 1.2 10^3/uL (1.5-5.0); LYMPH % 18.5 % (24.0-44.0); MEAN CORPUSCULAR HGB CONC 32.4 g/dl (32.0-36.5); MEAN CORPUSCULAR VOLUME 95.8 fl (80.0-96.0); MONO # 0.8 10^3/uL (0.0-0.8); MONO % 12.3 % (2.0-8.0); NEUTROPHILS # 4.3 10^3/uL (1.5-8.5); NEUTROPHILS % 64.3 % (36.0-66.0); PLATELET COUNT, AUTOMATED 180 10^3/uL (150-450); RED BLOOD COUNT 4.71 10^6/uL (4.30-6.10); WHITE BLOOD COUNT 6.6 10^3/uL (4.0-10.0)
[2024-01-28 11:27] LABS: C REACTIVE PROTEIN QUANTITATIV < 0.40 MG/DL (<1.0)
[2024-01-28 11:29] LABS: ALBUMIN 3.6 G/DL (3.2-5.2); ALKALINE PHOSPHATASE 107 U/L (40-129); ALT/SGPT 23 U/L (7.0-40); AST/SGOT 15 U/L (<34); BILIRUBIN,TOTAL 0.6 MG/DL (0.3-1.2); BLOOD UREA NITROGEN 27 MG/DL (9-23); CALCIUM LEVEL 9.1 MG/DL (8.5-10.1); CARBON DIOXIDE LEVEL 30 MMOL/L (20-31); CHLORIDE LEVEL 106 MMOL/L (98-107); CREATININE FOR GFR 0.91 MG/DL (0.70-1.30); GLOMERULAR FILTRATION RATE > 60.0 (>56); GLUCOSE, FASTING 125 MG/DL (60-100); POTASSIUM SERUM 3.7 MMOL/L (3.5-5.1); SODIUM LEVEL 142 MMOL/L (136-145); TOTAL PROTEIN 6.6 G/DL (5.7-8.2)
[2024-01-28 11:40] LABS: ERYTHROCYTE SEDIMENTATION RATE 31 mm/hr (0-20)
== END ==
LOC: M PLALAB 08:13
PROVIDERS: ATTEND Internal Medicine Rheumatology
DX: M06.09 Rheumatoid arthritis without rheumatoid factor, multiple sites (principal)

== ENCOUNTER → 2024-05-26 | Outpatient (CLI) | payer OTHER ==
[2024-05-26 10:39] LABS: BASO # 0.1 10^3/uL (0.0-0.2); BASO % 0.9 % (0.0-1.0); EOS # 0.1 10^3/uL (0.0-0.5); EOS % 2.3 % (0.0-3.0); HEMATOCRIT 48.8 % (42.0-52.0); LYMPH # 1.2 10^3/uL (1.5-5.0); LYMPH % 21.2 % (24.0-44.0); MEAN CORPUSCULAR HEMOGLOBIN 30.8 pg (27.0-33.0); MEAN CORPUSCULAR HGB CONC 32.8 g/dl (32.0-36.5); MEAN CORPUSCULAR VOLUME 93.8 fl (80.0-96.0); MONO # 0.6 10^3/uL (0.0-0.8); NEUTROPHILS # 3.6 10^3/uL (1.5-8.5); NEUTROPHILS % 64.1 % (36.0-66.0); PLATELET COUNT, AUTOMATED 177 10^3/uL (150-450); WHITE BLOOD COUNT 5.6 10^3/uL (4.0-10.0)
[2024-05-26 10:50] LABS: C REACTIVE PROTEIN QUANTITATIV < 0.50 MG/DL (<1.0); ERYTHROCYTE SEDIMENTATION RATE 33 mm/hr (0-20)
[2024-05-26 10:51] LABS: ALBUMIN 3.8 G/DL (3.2-5.2); ALKALINE PHOSPHATASE 95 U/L (40-129); ALT/SGPT 29 U/L (7.0-40); AST/SGOT 18 U/L (<34); BILIRUBIN,TOTAL 0.7 MG/DL (0.3-1.2); BLOOD UREA NITROGEN 16 MG/DL (9-23); CALCIUM LEVEL 9.4 MG/DL (8.5-10.1); CARBON DIOXIDE LEVEL 27 MMOL/L (20-31); CHLORIDE LEVEL 103 MMOL/L (98-107); CREATININE FOR GFR 0.91 MG/DL (0.70-1.30); GLOMERULAR FILTRATION RATE > 60.0 (>56); GLUCOSE, FASTING 142 MG/DL (60-100); POTASSIUM SERUM 3.9 MMOL/L (3.5-5.1); SODIUM LEVEL 142 MMOL/L (136-145); TOTAL PROTEIN 7.1 G/DL (5.7-8.2)
== END ==
LOC: M PLALAB 07:59
PROVIDERS: ATTEND Internal Medicine Rheumatology
DX: M06.09 Rheumatoid arthritis without rheumatoid factor, multiple sites (principal)

== ENCOUNTER → 2024-06-06 | Outpatient (REF) | payer OTHER | LOC: M SFHCRHEU 14:25 | PROVIDERS: ATTEND Internal Medicine Rheumatology | DX: Z53.9 Procedure and treatment not carried out, unspecified reason (principal) ==

== ENCOUNTER → 2024-10-20 | Outpatient (CLI) | payer OTHER ==
[2024-10-20 11:10] LABS: BASO # 0.1 10^3/uL (0.0-0.2); BASO % 0.8 % (0.0-1.0); EOS # 0.2 10^3/uL (0.0-0.5); EOS % 2.5 % (0.0-3.0); LYMPH # 1.0 10^3/uL (1.5-5.0); LYMPH % 11.9 % (24.0-44.0); MONO # 0.8 10^3/uL (0.0-0.8); MONO % 10.4 % (2.0-8.0); NEUTROPHILS # 5.9 10^3/uL (1.5-8.5); NEUTROPHILS % 74.1 % (36.0-66.0); PLATELET COUNT, AUTOMATED 185 10^3/uL (150-450)
[2024-10-20 11:11] LABS: C REACTIVE PROTEIN QUANTITATIV < 0.50 MG/DL (<1.0)
[2024-10-20 11:13] LABS: ALT/SGPT 26 U/L (7.0-40); AST/SGOT 21 U/L (<34); CALCIUM LEVEL 9.1 MG/DL (8.5-10.1); CARBON DIOXIDE LEVEL 28 MMOL/L (20-31); CHLORIDE LEVEL 108 MMOL/L (98-107); CREATININE FOR GFR 1.00 MG/DL (0.70-1.30); GLOMERULAR FILTRATION RATE 87.2 (>56); POTASSIUM SERUM 3.9 MMOL/L (3.5-5.1); SODIUM LEVEL 146 MMOL/L (136-145)
[2024-10-20 11:16] LABS: ERYTHROCYTE SEDIMENTATION RATE 23 mm/hr (0-20)
== END ==
LOC: M PLALAB 07:39
PROVIDERS: ATTEND Internal Medicine Rheumatology
DX: M06.09 Rheumatoid arthritis without rheumatoid factor, multiple sites (principal)

== ENCOUNTER → 2025-02-12 | Outpatient (CLI) | payer OTHER ==
[2025-02-12 10:35] LABS: BASO # 0.1 10^3/uL (0.0-0.2); BASO % 1.2 % (0.0-1.0); EOS # 0.1 10^3/uL (0.0-0.5); EOS % 2.2 % (0.0-3.0); LYMPH # 1.5 10^3/uL (1.5-5.0); LYMPH % 25.3 % (24.0-44.0); MONO # 0.7 10^3/uL (0.0-0.8); MONO % 11.5 % (2.0-8.0); NEUTROPHILS # 3.5 10^3/uL (1.5-8.5); NEUTROPHILS % 59.0 % (36.0-66.0); PLATELET COUNT, AUTOMATED 244 10^3/uL (150-450)
[2025-02-12 10:53] LABS: ALT/SGPT 97 U/L (7.0-40); AST/SGOT 43 U/L (<34); C REACTIVE PROTEIN QUANTITATIV < 0.50 MG/DL (<1.0); CALCIUM LEVEL 9.4 MG/DL (8.5-10.1); CARBON DIOXIDE LEVEL 25 MMOL/L (20-31); CHLORIDE LEVEL 105 MMOL/L (98-107); CREATININE FOR GFR 0.95 MG/DL (0.70-1.30); GLOMERULAR FILTRATION RATE > 90.0 (>56); POTASSIUM SERUM 3.6 MMOL/L (3.5-5.1); SODIUM LEVEL 144 MMOL/L (136-145)
== END ==
LOC: M PLALAB 07:59
PROVIDERS: ATTEND Internal Medicine Rheumatology
DX: M06.09 Rheumatoid arthritis without rheumatoid factor, multiple sites (principal)

== ENCOUNTER → 2025-02-17 | Outpatient (REF) | payer OTHER | LOC: M SFHCRHEU 16:09 | PROVIDERS: ATTEND Internal Medicine Rheumatology | DX: M06.09 Rheumatoid arthritis without rheumatoid factor, multiple sites (principal) ==

== ENCOUNTER → 2025-02-19 | Outpatient (CLI) | payer OTHER ==
[2025-02-19 11:02] LABS: ALT/SGPT 49.0 U/L (7.0-40); AST/SGOT 26.0 U/L (<34)
== END ==
LOC: M PLALAB 07:48
PROVIDERS: ATTEND Internal Medicine Rheumatology
DX: M06.09 Rheumatoid arthritis without rheumatoid factor, multiple sites (principal)